=== PATIENT | male | born 1965 | race Caucasian/White ===

== ENCOUNTER → 2017-02-04 | Outpatient (CLI) | payer BC ==
[~2017-02-04] VITALS: Ht 185.4 cm; Wt 136.1 kg
[~2017-02-04] MED LIST: HYDR12CA PO; LIDOCAINE 2% INJ 100 MG/5 ML SDV (FOR ANES.) As Ordered ONE; LISI40TAB PO; NS 1,000 ML IV ONE; PROPOFOL 200 MG/20 ML VIAL As Ordered ONE
--- NOTE | 2017-02-04 09:54 | ROOR ---
Patient Name: Homar Alvarez Procedure Date: 02/04/2017 9:29 AM Date of : 1965 Age: 51 Room: [facility] Gender: Male Note Status: Finalized Procedure: Colonoscopy Indications: Screening for colorectal malignant neoplasm Providers: DO Samuel Portillo MD: CANDICE JACOBSON Requesting Provider: Medicines: Propofol per Anesthesia Complications: No immediate complications. Procedure: Pre-Anesthesia Assessment: - Prior to the procedure, a History and Physical was performed, and patient medications and allergies were reviewed. The patient is competent. The risks and benefits of the procedure and the sedation options and risks were discussed with the patient. All questions were answered and informed consent was obtained. Patient identification and proposed procedure were verified by the physician, the nurse, the anesthesiologist and the medication reconciliation technician in the endoscopy suite. Mental Status Examination: alert and oriented. Airway Examination: normal oropharyngeal airway and neck mobility. Respiratory Examination: clear to auscultation. CV Examination: normal. Prophylactic Antibiotics: The patient does not require prophylactic antibiotics. Prior Anticoagulants: The patient has taken no previous anticoagulant or antiplatelet agents. ASA Grade Assessment: II - A patient with mild systemic disease. After reviewing the risks and benefits, the patient was deemed in satisfactory condition to undergo the procedure. The anesthesia plan was to use monitored anesthesia care (MAC). Immediately prior to administration of medications, the patient was re-assessed for adequacy to receive sedatives. The heart rate, respiratory rate, oxygen saturations, blood pressure, adequacy of pulmonary ventilation, and response to care were monitored throughout the procedure. The physical status of the patient was re-assessed after the procedure. The Colonoscope was introduced through the anus and advanced to the cecum, identified by appendiceal orifice and ileocecal valve. The colonoscopy was performed without difficulty. The patient tolerated the procedure well. Findings: The perianal exam findings include an abnormal skin lesion. The perianal exam findings include non-thrombosed internal hemorrhoids and internal hemorrhoids that prolapse with straining, but spontaneously regress to the resting position (Grade II). A less than 5 mm polyp was found in the rectum. The polyp was hyperplastic. The polyp was removed with a cold biopsy forceps. Resection and retrieval were complete. A few small-mouthed diverticula were found in the sigmoid colon. The exam was otherwise without abnormality on direct and retroflexion views. Impression: - An abnormal skin lesion. found on perianal exam. - Non-thrombosed internal hemorrhoids and internal hemorrhoids that prolapse with straining, but spontaneously regress to the resting position (Grade II) found on perianal exam. - One less than 5 mm polyp in the sigmoid colon, removed with a cold biopsy forceps. Resected and retrieved. - Diverticulosis in the sigmoid colon. - The examination was otherwise normal on direct and retroflexion views. Recommendation: - Patient has a contact number available for emergencies. The signs and symptoms of potential delayed complications were discussed with the patient. Return to normal activities tomorrow. Written discharge instructions were provided to the patient. - Repeat colonoscopy in 3 - 5 years for surveillance based on pathology results. - Return to my office in 1 week. - Await pathology results. Lonny Miramontes DO 02/04/2017 9:54:19 AM This report has been signed electronically. Number of Addenda: 0 Note Initiated On: 02/04/2017 9:29 AM Estimated Blood Loss: Estimated blood loss was minimal.
[2017-02-04 10:20] VITALS: BP 160/104
== END ==
LOC: M OPP 08:23
PROVIDERS: ATTEND Surgery
DX: Z12.11 Encounter for screening for malignant neoplasm of colon (principal); D12.8 Benign neoplasm of rectum; K64.1 Second degree hemorrhoids; K57.30 Diverticulosis of large intestine without perforation or abscess without bleeding; K62.5 Hemorrhage of anus and rectum; I10 Essential (primary) hypertension; Z79.899 Other long term (current) drug therapy

== ENCOUNTER → 2017-03-11 | Day surgery (SDC) | payer BC ==
[~2017-03-11] VITALS: Ht 185.4 cm; Wt 136.1 kg
[~2017-03-11] MED LIST changes: +CHLOROPROCAINE 2 % INJ PRES.FREE 20 ML VIAL (J2400) As Ordered ONE; +LIDOCAINE 1% MDV 20ML VIAL SQ PRN; +LIDOCAINE 2% JELLY 30 ML As Ordered ONE; +LR 1,000 ML IV ONE; +LR 1,000 ML IV SCH; +MIDAZOLAM INJ 2 MG/2 ML VIAL (J2250) As Ordered ONE; +NORCO, ANEXSIA 5/325MG TABLET (HYDROcodone/ACETAMINOPHEN) PO PRN; -NS 1,000 ML IV ONE; +ONDANSETRON 4MG/2ML VIAL (J2405) As Ordered ONE; +ROCURONIUM BROMIDE 50 MG/5 ML VIAL/SYRINGE As Ordered ONE; +ceFAZolin 2 GM/D5W 50 ML IV BAG (J0690) As Ordered ONE; +dexameTHASONE 4 MG/ML 1ML VIAL (J1100) As Ordered ONE; +fentaNYL 100 MCG/2 ML INJECTION (J3010) As Ordered ONE; +fentaNYL 100 MCG/2 ML INJECTION (J3010) IV PRN
[2017-03-11 10:10] VITALS: BP 143/73
--- NOTE | 2017-03-12 09:21 | RO ---
DATE OF PROCEDURE: 03/11/2017 PREOPERATIVE DIAGNOSIS: Perianal lesion. POSTOPERATIVE DIAGNOSIS: Perianal lesion. Perianal fistula. PROCEDURE: Excision of perianal skin lesion plus fistulotomy. SURGEON: Lonny Miramontes DO FARM MANAGEMENT SUPERVISOR: None. ANESTHESIA: Spinal COMPLICATIONS: None. INDICATION FOR PROCEDURE: Patient is a 53-year-old male [facility] During his [facility]oscopy he was found to have a hard lesion on the perianal skin. The patient mentioned that he had this for many years and it was starting to be concerning to him. He also mentioned that he started to have some drainage around this area that was intermittent. Because of that, plan was to remove this lesion as well as to evaluate for possible fistula in the area. Recommendation was to proceed with exam under anesthesia was well as possible fistulotomy versus Seton placement and removal of the skin lesion. Risks and benefits of the procedure not limited to but including bleeding, infection, incontinence and need for further surgery, were discussed in detail with the patient. Informed consent was obtained and procedure was planned. PROCEDURE: The patient brought back to operating room three after sufficient sedation. The perianal area was sterilely prepped and draped with Betadine. Next, a time-out was done to confirm proper patient and proper procedure. Following that a bivalve retractor was placed inside the end of the rectum. This skin lesion measuring about 6 x 8 mm in size was carefully excised using a 15 blade scalpel. Below that there was a skin opening. Mixture of 50% hydrogen peroxide and 50% saline was injected through this opening and there was an opening encounter on the inside of the rectum. Next, a wire was able to be passed from the outside through the inside through the sinus tract. This was then elevated up gently and electrocautery was used to carefully filet open the fistula tract, creating a fistulotomy. Once this was completed, there was no signs of any bleeding. The wound was then left open to allow to heal from the inside out. The patient tolerated the procedure well. Two interrupted #3-0 Vicryl sutures were used to reapproximate some of the muscle fibers to assist in healing, otherwise the rest of it was left open. The patient tolerated procedure well. He was awakened from anesthesia and sent to the postanesthesia care unit (PACU) in stable condition.
== END | disposition home or self-care (01) ==
LOC: M SDC 05:52
PROVIDERS: ATTEND Surgery
DX: K60.3 Anal fistula (principal); K62.89 Other specified diseases of anus and rectum; I10 Essential (primary) hypertension; E66.01 Morbid (severe) obesity due to excess calories; Z79.899 Other long term (current) drug therapy; Z86.19 Personal history of other infectious and parasitic diseases
CPT/HCPCS: 11401; 46270; 88304; J0690; J1100; J2250; J2400; J2405

== ENCOUNTER 2017-08-25 11:14 | Emergency (ER) | payer OTHER, BC ==
[~2017-08-25] VITALS: Ht 185.4 cm; Wt 137.3 kg
[~2017-08-25 11:14] MED LIST changes: -CHLOROPROCAINE 2 % INJ PRES.FREE 20 ML VIAL (J2400) As Ordered ONE; -LIDOCAINE 1% MDV 20ML VIAL SQ PRN; -LIDOCAINE 2% INJ 100 MG/5 ML SDV (FOR ANES.) As Ordered ONE; -LIDOCAINE 2% JELLY 30 ML As Ordered ONE; -LR 1,000 ML IV ONE; -LR 1,000 ML IV SCH; -MIDAZOLAM INJ 2 MG/2 ML VIAL (J2250) As Ordered ONE; -NORCO, ANEXSIA 5/325MG TABLET (HYDROcodone/ACETAMINOPHEN) PO PRN; -ONDANSETRON 4MG/2ML VIAL (J2405) As Ordered ONE; -PROPOFOL 200 MG/20 ML VIAL As Ordered ONE; -ROCURONIUM BROMIDE 50 MG/5 ML VIAL/SYRINGE As Ordered ONE; -ceFAZolin 2 GM/D5W 50 ML IV BAG (J0690) As Ordered ONE; -dexameTHASONE 4 MG/ML 1ML VIAL (J1100) As Ordered ONE; -fentaNYL 100 MCG/2 ML INJECTION (J3010) As Ordered ONE; -fentaNYL 100 MCG/2 ML INJECTION (J3010) IV PRN
[2017-08-25] MEDS ORDERED: TYLE325T5 PO (11:25)
--- NOTE | 2017-08-25 13:02 | REP ---
LEFT KNEE SERIES: Five views of the left knee performed. I see no acute fracture or dislocation. There is mild diffuse joint space narrowing, subchondral sclerosis, spurring, and chondrocalcinosis. Large spurs are seen of the lateral patellar facet and femoral condyle. There appears to be a small joint effusion. IMPRESSION: Degenerative changes and small joint effusion. No evidence of acute fracture or dislocation. Signed by Lonny Hernandez MD 08/25/2017 05:26 P
[2017-08-25 13:28] VITALS: BP 152/88
== END 2017-08-25 13:36 | disposition home or self-care (01) ==
LOC: M ED 11:14
DX: Z04.1 Encounter for examination and observation following transport accident (principal); M25.462 Effusion, left knee; S80.02XA Contusion of left knee, initial encounter; V99.XXXA Unspecified transport accident, initial encounter; Y92.410 Unspecified street and highway as the place of occurrence of the external cause; Y93.89 Activity, other specified; Y99.8 Other external cause status; I10 Essential (primary) hypertension; Z79.899 Other long term (current) drug therapy

== ENCOUNTER → 2018-01-22 | Outpatient (CLI) | payer OTHER | LOC: M LRY 15:49 | DX: M79.672 Pain in left foot (principal) | CPT/HCPCS: 73630 ==

== ENCOUNTER → 2020-01-27 | Outpatient (CLI) | payer OTHER ==
[~2020-01-27] MED LIST changes: +LISI40TA PO; -LISI40TAB PO; +TYLE325T5 PO
--- NOTE | 2020-01-27 17:54 | REP ---
Clinical: Trauma. Technique: Internal rotation, external rotation, and Y view of the right shoulder. Findings: No acute fracture or dislocation is appreciated. Mild age-related degenerative changes include subtle cortical irregularity at the acromioclavicular joint and minimal blunting of the calcified glenoid rim. Subacromial space is normal. No periarticular calcifications or loose bodies are identified. Surrounding soft tissues are unremarkable. Impression: Mild age-related degenerative changes. No acute fracture or dislocation appreciated. Electronically Signed by Travis Jones MD 01/27/2020 05:45 P
== END ==
LOC: M LRY 17:14
PROVIDERS: ATTEND Nurse Practitioner Family
DX: S49.91XA Unspecified injury of right shoulder and upper arm, initial encounter (principal); M19.011 Primary osteoarthritis, right shoulder; X58.XXXA Exposure to other specified factors, initial encounter; Y92.9 Unspecified place or not applicable

== ENCOUNTER 2020-09-21 15:48 | Emergency (ER) | payer OTHER ==
[~2020-09-21] VITALS: Ht 185.4 cm; Wt 137.3 kg
[~2020-09-21 15:48] MED LIST changes: -LISI40TA PO; +LISI40TA4 PO
--- OUTSIDE RECORDS SUMMARY | 2020-09-21 15:54 | CCD | Continuity of Care Document ---
Author Author Homar VAZQUEZ RPA Organization Unknown Address [address] [place] [address] Phone [phone] Problems Active Problems Provider Date Allergic rhinitis Jairo Vazquez RPA Onset: 07/20/2012 Hyperlipidemia Jairo Vazquez RPA Onset: 11/03/2012 Elevated levels of transaminase & lactic acid dehydrog enase Jairo Vazquez RPA Onset: 11/03/2012 Essential hypertension Jairo Vazquez RPA Onset: 015 Ventral hernia without obstruction or gangrene Glen Vazquez RPA Onset: 06/08/2015 Nocturia Jairo Vazquez RPA Onset: 12/23/2016 Vitamin D deficiency Jairo Vazquez RPA Onset: 7 Abnormal involuntary movement Jairo Vazquez RPA Onset: 08/27/2020 Social History Type Date Description Comments Sex Unknown ETOH Use former.[email or web address].[email or web address] Recreational Drug Use Never Used Drugs Tobacco Use Start: Unknown Patient has never smoked Allergies, Adverse Reactions, Alerts Description No Known Drug Allergies Medications Active Medications SIG Qnty Indications Ordering Provide r Date Triamcinolone Acetonide 0.1% Ointm ent apply locally to rash on hands twice a day x 10 days as needed 45gm Anoop Torrez D.O., FAAFP 08/30/2019 Lisinopril 40mg Tablets i by mouth every day 90tabs Anoop Torrez D.O., FAAFP 11/2011 Hydrochlorothiazide 12.5mg Tablets 1 by mouth every day 90tabs Anoop Torrez D.O., FAAFP 11/2011 Medications Administered in Office Medication SIG Qnty Indications Ordering Provider Date Injection (SC)/(Im) Injection Jairo Vazquez RPA 07/28/2013 Injection (SC)/(Im) Injection Jairo Vazquez RPA 07/20/2012 Injection Subcutaneous Or Intramuscular Injection Sidra Stephens [facility] 07/08 Immunizations CPT Code Status Date Vaccine Reaction Lot # 10502 Given 06/22/2020 Influenza Virus Vaccine, Quadrivalent, Slit Virus, Im Use 3Y & Up [id number] 01244 Given 08/03/2018 Influenza Virus Vaccine, Quadrivalent, Slit Virus, Im Use 3Y & Up [id number] 04932 Given 07/17/2017 Influenza Virus Vaccine, Quadrivalent, Slit Virus, Im Use 3Y & Up [id number] 29066 Given 06/26/2016 Influenza Virus Vaccine, Quadrivalent, Slit Virus, Im Use 3Y & Up [id number] 17568 Given 06/08/2015 Influenza Virus Vac. Split Virus Individuals 3 Years And Above [id number] 23696 Given 08/15/2014 Influenza Virus Vac. Split Virus Individuals 3 Years And Above [id number] 20415 Given 07/28/2013 Influenza Virus Vac. Split Virus Individuals 3 Years And Above [id number] 15646 Given 07/20/2012 Influenza Virus Vac. Split Virus Individuals 3 Years And Above [id number] 17884 Given 07/21/2008 Influenza Virus Vac. Split Virus Individuals 3 Years And Above [id number] Refused 08/30/2019 Influenza Virus Vaccine, Quadrivalent, Slit Virus, Im Use 3Y & Up RECEIVED AT [facility] 07/2019 Vital Signs Date Vital Result Comment 08/27/2020 1:32pm BP Systolic 124 mmHg BP Diastolic 90 mmHg Body Temperature 98.2 F Heart Rate 100 /min Respiratory Rate 16 /min Height 73 inches 6'1" Weight 298.00 lb [place] Body Weight 184 lb BMI (Body Mass Index) 39.3 kg/m2 O2 % BldC Oximetry 97 % 06/22/2020 8:35am BP Systolic 146 mmHg BP Diastolic 90 mmHg BP Systolic Recheck 130 mmHg BP Diastolic Recheck 88 mmHg Body Temperature 97.3 F Heart Rate 81 /min Respiratory Rate 16 /min Height 73 inches 6'1" Weight 299.00 lb [place] Body Weight 184 lb BMI (Body Mass Index) 39.4 kg/m2 O2 % BldC Oximetry 96 % Results Test Acquired Date Facility Test Result H/L Range Note U/A DIP FPA 03/13/2020 [facility] Asso ciates Color Urine YELLOW Yellow Appearance CLEAR Clear Specific [place] 1.025 1.00-1.03 PH Urine 5.0 5.0-8.0 Glucose Urine NEG Negative Bilirubin Urine NEG Negative Ketones NEG Negative Blood Urine NEG Negative Protein Urine NEG Negative Urobilinogen .2 EU/dl 0.2-1.0 Nitrite NEG Negative Leukocytes NEG Negative Laboratory test finding 03/13/2020 [facility] PSA, Total 1.47 ng/mL 0.0 - 4.0 Laboratory test finding 03/13/2020 [facility] TSH 0.994 ulU/mL 0.60 - 4.8 CBC 03/13/2020 [facility] WBC 4.6 10E3/uL 4.1 - 10.9 1 RBC 5.78 10E6/uL 4.20 - 6.30 HGB 17.0 g/dL 12.0 - 18.0 HCT 49.8 % 37.0 - 51.0 MCV 86.2 fL 80.0 - 97.0 MCH 29.4 pg 26.0 - 32.0 MCHC 34.1 g/dL 31.0 - 36.0 PLT 173 10E3/uL 140 - 440 RDW-CV 13.4 % 11.5 - 14.5 Lym% 23.5 % 10.0 - 58.5 Neut% 65.5 % 37.0 - 92.0 MXD% 11.0 % 0.1 - 24.0 Lym# 1.1 10E3/uL 0.6 - 4.1 Neut# 3.0 % 2.0 - 7.8 MXD# 0.5 10E3/uL 0.0 - 1.8 MPV 11.1 fL 9.0 - 13.0 CMP 03/13/2020 [facility] Glu 103 mg/dL 70 - 110 BUN 14 mg/dL 8 - 23 Creat 0.8 mg/dL 0.7 - 1.2 BUN/Creatinine Ratio 18.3 CALC Na 140 mmol/L 136 - 145 K 4.1 mmol/L 3.5 - 5.1 CL 105.4 mmol/L 98.0 - 107.0 Co2 24.0 mmol/L 22.0 - 29.0 CA 9.4 mg/dL 8.6 - 10.2 TP 6.6 g/dL 6.6 - 8.7 Alb 4.4 g/dL 3.5 - 5.2 A/G Ratio 1.9 CALC Globulin 2.3 CALC Alp 102.0 U/L 40 - 129 Alt (SGPT) 37 U/L 0 - 41 Ast (Sgot) 25 U/L 0 - 40 Tbili 0.53 mg/dL 0.0 - 1.2 Osmolality-Calculated 281.0 CALC Anion Gap 15 mmol/L eGFR 117 # Calc 2 eGFR Non-Afr. [place] 101 # Calc 3 Lipid Panel 03/13/2020 [facility] Chol 188 mg/dL 0 - 200 Trig 76 mg/dL 35 - 200 HDL 52 mg/dL 35 - 55 LDL_C 121 Calc 75 - 129 Cho/HDL Ratio 3.6 Calc 1 NORMAL RANGES Age WBC RBC HGB HCT MCV PLT Adult M 4.1-10.9 4.20-6.30 12.0-18.0 37.0-51.0 80-97 140-440 Adult F 4.1-10.9 4.04-5.48 12.0-18.0 37.0-51.0 80-97 140-440 0 -1 Yr 5.0-20.0 3.9-5.9 15-18 MV: 44 MV: 91 MV: 277 2-9 Yr. 6.0-17.0 3.8-5.4 11-13 MV: 37 MV: 78 MV: 300 10 Yrs. 5.0-13.0 3.8-5.4 12-15 MV: 39 MV: 80 MV: 250 NOTE: * FOR ADULT BLACK MALES AND FEMALES, NORMAL WBC IS 2.9-7.7 K/ML * FOR ADULT BLACK MALES AND FEMALES, NORMAL RBC,HGB, AND HCT IS 5% LESS SOURCE FOR DATA: ROLANDA DYN 1800 OPERATION MANUAL( AUTOMATED BLOOD COUNTS ANDDIFF.) APPENDIX B-3 CHRONIC KIDNEY DISEASE STAGING PER NKF: MALE GFR INTERPRETATION: 20-49 YRS: >60 mL/min Normal 50-59 YRS: >56 mL/min Normal 60-69 YRS: >49 mL/min Normal 70-79 YRS: >42 mL/min Normal 80 and above >35 mL/min Normal FEMALE GRF INTERPRETATION: 20-39 YRS: >60 mL/min Normal 40-49 YRS: >58 mL/min Normal 50-59 YRS: >51 mL/min Normal 60-69 YRS: >45 mL/min Normal 70-79 YRS: >39 mL/min Normal 80 and above >32 mL/min NormalCLASSIFICATION CHOLESTEROL FOR ADULTS CHILDREN/ADOLESCENTS* DESIRABLE: <200 MG/DL <170 MG/DL BORDER-LINE HIGH RISK: 200-239 MG/DL 170-199 MG/DL HIGH RISK: >240 MG/DL >200 MG/DL CLASS. FOR PRIMARY LDL CHOL PREVENTION: LDL CHOL-CHILD/ADOLESCENTS* DESIRABLE: <130 MG/DL <110 MG/DL BORDERLINE-HIGH RISK: 130-159 MG/DL 110-129 MG/DL HIGH RISK: >160 MG/DL >130 MG/DL *CHILDREN AND ADOLESCENTS REPRESENTS INDIVIDUALA AGED 2-19 YEARS EXCLUSIVE. 2 CKD-EPI 3 CKD-EPI Procedures Description No Information Available Medical Devices Description No Information Available Encounters Type Date Location Provider Dx Diagnosis Office Visit 08/27/2020 1:30p [facility] Jairo Vazquez, RP A Z00.01 Encounter for general adult medical exam w abnormal findings I10 Essential (primary) hyperten wanda E78.5 Hyperlipidemia, unspecified J30.2 Other seasonal allergic rhin itis R35.1 Nocturia R25.1 Tremor, unspecified K43.9 Ventral hernia without obstr uction or gangrene Office Visit 06/22/2020 8:30a [facility] Jairo Vazquez, RP A I10 Essential (primary) hypertension E78.5 Hyperlipidemia, unspecified J30.2 Other seasonal allergic rhin itis R35.1 Nocturia Z23 Encounter for immunization Office Visit 03/13/2020 8:30a [facility] Jairo Vazquez, RP A I10 Essential (primary) hypertension E78.5 Hyperlipidemia, unspecified J30.2 Other seasonal allergic rhin itis R35.1 Nocturia R74.0 Nonspec elev of levels of tr ansamns & lactic acid dehydrgnse Assessments Date Code Description Provider 08/27/2020 Z00.01 Encounter for genera l adult medical examination with abnormal findings Jairo Vazquez, RPA 08/27/2020 I10 Essential (primary) hypertension Jairo Vazquez, RPA 08/27/2020 E78.5 Hyperlipidemia, unspecified Jairo Biswas, RPA 08/27/2020 J30.2 Other seasonal allergic rhinitis Jairo Vazquez, RPA 08/27/2020 R35.1 Nocturia Jairo Vazquez, RPA 08/27/2020 R25.1 Tremor, unspecified Asaf Vazquez, RPA 08/27/2020 K43.9 Ventral hernia without obstructi on or gangrene Jairo Vazquez, RPA 06/22/2020 I10 Essential (primary) hypertension Jairo Vazquez, RPA 06/22/2020 E78.5 Hyperlipidemia, unspecified Jairo Biswas, RPA 06/22/2020 J30.2 Other seasonal allergic rhinitis Jairo Vazquez, RPA 06/22/2020 R35.1 Nocturia Jairo Vazquez, RPA 06/22/2020 Z23 Encounter for immunization Jairo Brar, RPA 03/13/2020 I10 Essential (primary) hypertension Jairo Vazquez, RPA 03/13/2020 E78.5 Hyperlipidemia, unspecified Jairo Biswas, RPA 03/13/2020 J30.2 Other seasonal allergic rhinitis Jairo Vazquez, RPA 03/13/2020 R35.1 Nocturia Jairo Vazquez, RPA 03/13/2020 R74.0 Nonspecific elevation of levels of transaminase and lactic a Jairo Vazquez, RPA Plan of Treatment Future Appointment(s):* 09/25/2020 8:30 am - Jairo Vazquez, RPA at [facility] Functional Status Description No Information Available Mental Status Description No Information Available Referrals Refer to Reason for Referral Status Appt Date Tremor both hands. Created
--- OUTSIDE RECORDS SUMMARY | 2020-09-21 15:54 | CCD | Continuity of Care Document ---
Author Author Homar VZAQUEZ RPA Organization Unknown Address [address] [place] [address] Phone [phone] Problems Active Problems Provider Date Allergic rhinitis [...] Injection Subcutaneous Or Intramuscular Injection Sidra Stephens [facility] 07/08 Immunizations CPT Code Status Date Vaccine Reaction Lot # [id number] Given 06/22/2020 Influenza Virus Vaccine, Quadrivalent, Slit Virus, Im Use 3Y & Up [id number] 96433 Given 08/03/2018 Influenza Virus Vaccine, Quadrivalent, Slit Virus, Im Use 3Y & Up [id number] 48254 Given 07/17/2017 Influenza Virus Vaccine, Quadrivalent, Slit Virus, Im Use 3Y & Up [id number] 07147 Given 06/26/2016 Influenza Virus Vaccine, Quadrivalent, Slit Virus, Im Use 3Y & Up [id number] 78736 Given 06/08/2015 Influenza Virus Vac. Split Virus Individuals 3 Years And Above [id number] 09286 Given 08/15/2014 Influenza Virus Vac. Split Virus Individuals 3 Years And Above [id number] 36541 Given 07/28/2013 Influenza Virus Vac. Split Virus Individuals 3 Years And Above [id number] 16809 Given 07/20/2012 Influenza Virus Vac. Split Virus Individuals 3 Years And Above [id number] 60532 Given 07/21/2008 Influenza Virus Vac. Split Virus Individuals 3 Years And Above [id number] 96329 Refused 08/30/2019 Influenza Virus Vaccine, Quadrivalent, Slit Virus, Im Use 3Y & Up RECEIVED AT [facility] 07/2019 Vital Signs Date Vital Result Comment 08/27/2020 1:32pm BP Systolic 124 mmHg BP Diastolic 90 mmHg Body Temperature 98.2 F Heart Rate 100 /min Respiratory Rate 16 /min Height 73 inches 6'1" Weight 298.00 lb [place] Body Weight 184 lb BMI (Body Mass Index) 39.3 kg/m2 O2 % BldC Oximetry 97 % 06/22/2020 8:35am BP Systolic 146 mmHg BP Diastolic 90 mmHg BP Systolic Recheck 130 mmHg BP Diastolic Recheck 88 mmHg Body Temperature 97.3 F Heart Rate 81 /min Respiratory Rate 16 /min Height 73 inches 6'1" Weight 299.00 lb [place] Body Weight 184 lb BMI (Body Mass Index) 39.4 kg/m2 O2 % BldC Oximetry 96 % Results Test Acquired Date Facility Test Result H/L Range Note U/A DIP FPA 03/13/2020 [facility] Practice Asso ciates Color Urine YELLOW Yellow Appearance CLEAR Clear Specific [place] 1.025 1.00-1.03 PH Urine 5.0 5.0-8.0 Glucose [...] eGFR 117 # Calc 2 eGFR Non-Afr. [place] 101 # Calc 3 Lipid Panel 03/13/2020 [...] Provider Dx Diagnosis Office Visit 08/27/2020 1:30p [place] [facility] Jairo Vazquez, RP A Z00.01 Encounter for general adult medical exam w abnormal findings I10 Essential (primary) hyperten wanda E78.5 Hyperlipidemia, unspecified J30.2 Other seasonal allergic rhin itis R35.1 Nocturia R25.1 Tremor, unspecified K43.9 Ventral hernia without obstr uction or gangrene Office Visit 06/22/2020 8:30a [facility] Jairo Vazquez, RP A I10 Essential (primary) hypertension E78.5 Hyperlipidemia, unspecified J30.2 Other seasonal allergic rhin itis R35.1 Nocturia Z23 Encounter for immunization Office Visit 03/13/2020 8:30a [place] [facility] Jairo Vazquez, RP A I10 Essential [...] Vazquez, RPA Plan of Treatment Future Appointment(s):* 11/29/2020 8:30 am - Jairo Vazquez, SHENG at [facility] Functional Status Description No Information Available Mental Status Description No Information Available Referrals Refer to Reason for Referral Status Appt Date Mel Gibbs Tremor both hands. Sent 0 000 [facility] [address] [place] [address] [phone]
--- OUTSIDE RECORDS SUMMARY | 2020-09-21 15:54 | CCD | Continuity of Care Document ---
Author Author Homar SAAVEDRA M.D. Organization Unknown Address [address] [place] [address] Phone [phone] Care Team Providers Care Substation Design Draftsperson Name Role Phone Jairo Vazquez AUTM [phone] Anoop Torrez D.O. AUTM [phone] Problems Active Problems Provider Date Abnormal involuntary movement Onset: Nocturia Onset: 12/23/2016 Vitamin D deficiency Onset: 12/23/2016 Essential hypertension Onset: 06/08/2015 Hyperlipidemia Onset: 11/03/2012 Elevated levels of transaminase & lactic acid dehydrogenase Onset: 11/03/2012 Allergic rhinitis Onset: 07/20/2012 Intention tremor Kerry Saavedra M.D. Onset: 08/29/2020 Social History Type Date Description Comments Sex Unknown Tobacco Use Start: Unknown Patient has never smoked Allergies, Adverse Reactions, Alerts Description No Known Drug Allergies Medications Active Medications SIG Qnty Indications Ordering Provide r Date Triamcinolone Acetonide 0.1% Ointm ent apply locally to rash on hands twice a day x 10 days as needed 45units Anoop Torrez D.O. 08/30/2019 Lisinopril 40mg Tablets i by mouth every day 90tabs Anoop Torrez D.O. 01/08/2012 Hydrochlorothiazide 12.5mg Tablets 1 by mouth every day 90tabs Anoop Torrez D.O. 01/08/2012 Immunizations Description No Information Available Vital Signs Date Vital Result Comment 08/29/2020 2:45pm Respiratory Rate 12 /min Height 73 inches 6'1" Weight 298.00 lb BMI (Body Mass Index) 39.3 kg/m2 [place] Body Weight 184 lb 08/27/2020 1:32pm BP Systolic 124 mmHg BP Diastolic 90 mmHg Heart Rate 100 /min Body Temperature 98.2 F Respiratory Rate 16 /min Height 73 inches 6'1" Weight 298.00 lb BMI (Body Mass Index) 39.3 kg/m2 O2 % BldC Oximetry 97 % Results Description No Information Available Procedures Description No Information Available Medical Devices Description No Information Available Encounters Description No Information Available Assessments Description No Information Available Plan of Treatment No Information Available Functional Status Description No Information Available Mental Status Description No Information Available Referrals Description No Information Available
--- OUTSIDE RECORDS SUMMARY | 2020-09-21 15:54 | CCD | Continuity of Care Document ---
Author Author Homar VAZQUEZ RPA Organization Unknown Address [address] [facility] [place] [address] Phone [phone] Problems Active Problems Provider Date Allergic rhinitis [...] D deficiency Jairo Vazquez RPA Onset: 7 Social History Type Date Description Comments Sex [...] Tablets 1 by mouth every day 90tabs Sim Diaz.O., FAAFP 11/2011 Medications Administered in Office Medication SIG Qnty Indications Ordering Provider Date Injection (SC)/(Im) Injection Jairo Vazquez RPA 07/28/2013 Injection (SC)/(Im) Injection Jairo Vazquez RPA 07/20/2012 Injection Subcutaneous Or Intramuscular Injection Sidra Stephens [facility]- 07/08 Immunizations CPT Code Status Date Vaccine Reaction Lot # [id number] Given 06/22/2020 Influenza Virus Vaccine, Quadrivalent, Slit Virus, Im Use 3Y & Up [id number] 99827 Given 08/03/2018 Influenza Virus Vaccine, Quadrivalent, Slit Virus, Im Use 3Y & Up [id number] 29264 Given 07/17/2017 Influenza Virus Vaccine, Quadrivalent, Slit Virus, Im Use 3Y & Up [id number] 54173 Given 06/26/2016 Influenza Virus Vaccine, Quadrivalent, Slit Virus, Im Use 3Y & Up [id number] 15952 Given 06/08/2015 Influenza Virus Vac. Split Virus Individuals 3 Years And Above [id number] [id number] Given 08/15/2014 Influenza Virus Vac. Split Virus Individuals 3 Years And Above [id number] 30630 Given 07/28/2013 Influenza Virus Vac. Split Virus Individuals 3 Years And Above [id number] 81208 Given 07/20/2012 Influenza Virus Vac. Split Virus Individuals 3 Years And Above [id number] [id number] Given 07/21/2008 Influenza Virus Vac. Split Virus Individuals 3 Years And Above [id number] Refused 08/30/2019 Influenza Virus Vaccine, Quadrivalent, Slit Virus, Im Use 3Y & Up RECEIVED AT [facility] 07/2019 Vital Signs Date Vital Result Comment 06/22/2020 8:35am BP Systolic 146 mmHg BP Diastolic 90 mmHg BP Systolic Recheck 130 mmHg BP Diastolic Recheck 88 mmHg Body Temperature 97.3 F Heart Rate 81 /min Respiratory Rate 16 /min Height 73 inches 6'1" Weight 299.00 lb [place] Body Weight 184 lb BMI (Body Mass Index) 39.4 kg/m2 O2 % BldC Oximetry 96 % 03/13/2020 8:30am BP Systolic 122 mmHg BP Diastolic 84 mmHg Body Temperature 99.2 F Heart Rate 72 /min Respiratory Rate 16 /min Height 73 inches 6'1" Weight 292.00 lb [place] Body Weight 184 lb BMI (Body Mass Index) 38.5 kg/m2 O2 % BldC Oximetry 97 % Results Test Acquired Date Facility Test Result H/L Range Note U/A DIP FPA 03/13/2020 [facility] Color Urine YELLOW Yellow Appearance CLEAR Clear Specific [facility] 1.025 1.00-1.03 PH Urine 5.0 5.0-8.0 Glucose [...] eGFR 117 # Calc 2 eGFR Non-Afr. Bulgarian 101 # Calc 3 Lipid Panel 03/13/2020 [...] HCT IS 5% LESS SOURCE FOR DATA: [employer] DYN 1800 OPERATION MANUAL( AUTOMATED BLOOD COUNTS [...] Date Location Provider Dx Diagnosis Office Visit 06/22/2020 8:30a [place] [facility] Jairo Vazquez, RP A I10 Essential (primary) hypertension E78.5 Hyperlipidemia, unspecified J30.2 Other seasonal allergic rhin itis R35.1 Nocturia Z23 Encounter for immunization Office Visit 03/13/2020 8:30a [place] [facility] Jairo Vazquez, RP A I10 Essential (primary) hypertension E78.5 Hyperlipidemia, unspecified J30.2 Other seasonal allergic rhin itis R35.1 Nocturia R74.0 Nonspec elev of levels of tr ansamns & lactic acid dehydrgnse Assessments Date Code Description Provider 06/22/2020 I10 Essential (primary) hypertension Jairo Vazquez, RPA 06/22/2020 E78.5 Hyperlipidemia, unspecified Hinm an, Jairo D, RPA 06/22/2020 J30.2 Other seasonal allergic rhinitis [...] Future Appointment(s):* 09/25/2020 8:30 am - Jairo Vazquez RPA at [facility] * 08/27/2020 1:30 pm - Jairo Vazquez RPA at [facility] Functional Status Description No Information Available Mental Status Description No Information Available Referrals Description No Information Available
--- OUTSIDE RECORDS SUMMARY | 2020-09-21 15:55 | CCD ---
Author Author [facility] Organization [facility] Address Unknown Phone Unavailable Care Team Providers Care Election Supervisor Name Role Phone [facility], PA-C Unavailable Unavailabl e Fish, [facility], PA-C Unavailable Unavailabl e Fish, [facility], PA-C Unavailable Unavailabl e Fish, [facility], PA-C Unavailable Unavailabl e Fish, [facility], PA-C Unavailable Unavailabl e Fish, [facility], PA-C Unavailable Unavailabl e Fish, [facility], PA-C Unavailable Unavailabl e Fish, [facility], PA-C Unavailable Unavailabl e Fish, [facility], PA-C Unavailable Unavailabl e Fish, [facility], PA-C Unavailable Unavailabl e Fish, [facility], PA-C Unavailable Unavailabl e Fish, [facility], PA-C Unavailable Unavailabl e Fish, [facility], PA-C Unavailable Unavailabl e Fish, [facility], PA-C Unavailable Unavailabl e Fish, [facility], PA-C Unavailable Unavailabl e Fish, [facility], PA-C Unavailable Unavailabl e Fish, [facility], PA-C Unavailable Unavailabl e Fish, [facility], PA-C Unavailable Unavailabl e Fish, Alissa Kendy MPAS, PA-C Unavailable Unavailabl e Fish, Alissa Larry MPAS, PA-C Unavailable Unavailabl e Fish, Alissa Larry MPAS, PA-C Unavailable Unavailabl e Fish, Alissa Larry MPAS, PA-C Unavailable Unavailabl e Fish, Alissa Larry MPAS, PA-C Unavailable Unavailabl e Fish, Alissa Larry MPAS, PA-C Unavailable Unavailabl e Fish, Alissa Larry MPAS, PA-C Unavailable Unavailabl e Fish, Alissa Rogersen MPAS, PA-C Unavailable Unavailabl e Fish, Alissa Rogersen MPAS, PA-C Unavailable Unavailabl e Fish, Alissa Larry MPAS, PA-C Unavailable Unavailabl e Fish, Alissa Larry MPAS, PA-C Unavailable Unavailabl e Fish, Alissa Larry MPAS, PA-C Unavailable Unavailabl e Fish, Alissa Larry MPAS, PA-C Unavailable Unavailabl e Fish, Alissa Larry MPAS, PA-C Unavailable Unavailabl e Fish, Alissa Larry MPAS, PA-C Unavailable Unavailabl e GeorgeSim rolle PA Unavailable Unavailable Sim Vazquez PA Unavailable Unavailable Sim Vazquez PA Unavailable Unavailable Sim Vazquez PA Unavailable Unavailable Sim Vazquez PA Unavailable Unavailable Sim Vazquez PA Unavailable Unavailable Sim Vazquez PA Unavailable Unavailable Sim Vazquez PA Unavailable Unavailable Sim Vazquez PA Unavailable Unavailable Sim Vazquez PA Unavailable Unavailable Sim Vazquez PA Unavailable Unavailable Sim Vazquez PA Unavailable Unavailable Sim Vazquez PA Unavailable Unavailable Sim Vazquez PA Unavailable Unavailable Sim Vazquez PA Unavailable Unavailable Sim Vazquez PA Unavailable Unavailable Sim Vazquez PA Unavailable Unavailable Sim Vazquez Jairo PA Unavailable Unavailable Sim Vazquez PA Unavailable Unavailable Sim Vazquez PA Unavailable Unavailable Sim Vazquez PA Unavailable Unavailable Sim Vazquez PA Unavailable Unavailable Sim Vazquez PA Unavailable Unavailable Sim Vazquez PA Unavailable Unavailable Sim Vazquez PA Unavailable Unavailable Sim Vazquez PA Unavailable Unavailable Sim Vazquez PA Unavailable Unavailable Sim Vazquez PA Unavailable Unavailable Sim Vazquze PA Unavailable Unavailable George, D Jairo PA Unavailable Unavailable George, D Jairo PA Unavailable Unavailable George, D Jairo PA Unavailable Unavailable George, D Jairo PA Unavailable Unavailable George, D Jairo PA Unavailable Unavailable George, D Jairo PA Unavailable Unavailable George, D Jairo PA Unavailable Unavailable George, D Jairo PA Unavailable Unavailable George, D Jairo PA Unavailable Unavailable George, D Jairo PA Unavailable Unavailable George, D Jairo PA Unavailable Unavailable George, D Jairo PA Unavailable Unavailable George, D Jairo PA Unavailable Unavailable George, D Jairo PA Unavailable Unavailable George, D Jairo PA Unavailable Unavailable George, D Jairo PA Unavailable Unavailable George, D Jairo PA Unavailable Unavailable George, D Jairo PA Unavailable Unavailable George, D Jairo PA Unavailable Unavailable George, D Jairo PA Unavailable Unavailable George, D Jairo PA Unavailable Unavailable George, D Jairo PA Unavailable Unavailable George, D Jairo PA Unavailable Unavailable George, D Jairo PA Unavailable Unavailable George, D Jairo PA Unavailable Unavailable George, D Jairo PA Unavailable Unavailable George, D Jairo PA Unavailable Unavailable George, D Jairo PA Unavailable Unavailable George, D Jairo PA Unavailable Unavailable George, D Jairo PA Unavailable Unavailable George, D Jairo PA Unavailable Unavailable George, D Jairo PA Unavailable Unavailable George, D Jairo PA Unavailable Unavailable George, D Jairo PA Unavailable Unavailable Re-disclosure Warning The records that you are about to access may contain information from federally-assisted alcohol or drug abuse programs. If such information is present, then the following federally mandated warning applies: This information has been disclosed to you from records protected by federal confidentiality rules (42 CFR part 2). The federal rules prohibit you from making any further disclosure of this information unless further disclosure is expressly permitted by the written consent of the person to whom it pertains or as otherwise permitted by 42 CFR part 2. A general authorization for the release of medical or other information is NOT sufficient for this purpose. The Federal rules restrict any use of the information to criminally investigate or prosecute any alcohol or drug abuse patient.The records that you are about to access may contain highly sensitive health information, the redisclosure of which is protected by Article 27-F of the [place] State Public Health law. If you continue you may have access to information: Regarding HIV / AIDS; Provided by facilities licensed or operated by the [facility] Office of Mental Health; or Provided by the [facility] Office for People With Developmental Disabilities. If such information is present, then the following [facility] mandated warning applies: This information has been disclosed to you from confidential records which are protected by state law. State law prohibits you from making any further disclosure of this information without the specific written consent of the person to whom it pertains, or as otherwise permitted by law. Any unauthorized further disclosure in violation of state law may result in a fine or halfway sentence or both. A general authorization for the release of medical or other information is NOT sufficient authorization for further disc losure. Family History Family Member Name Family Member Gender Family Member Status Date o f Status Description Data Source(s) Unknown Male Problem [facility] ([facility]) () Unknown Unknown Encounters Encounter Providers Location Date Indications Data Source(s ) Outpatient Attender: Jairo HARVEY [place] [facility] 12:30:00 PM EST [facility] ([facility] Outpatient Attender: Jairo HARVEY [place] [facility] 08:30:00 AM EDT [facility] ([facility] Outpatient Attender: Kendy ALBERT PA-C Physical Therapy 06/08/2020 05:00:00 PM EDT [facility] ([facility] Outpatient Attender: Kendy ALBERT PA-C Physical Therapy 04/27/2020 08:30:00 AM EDT [facility] ([facility]) Outpatient Attender: Jairo HARVEY [place] [facility] 03/2020 08:30:00 AM EDT [facility] ([facility] OFFICE OUTPATIENT NEW 30 MINUTES Attender: Kendy ALBERT PA-C Physical Therapy 03/02/2020 11:00:00 AM EDT [facility] ([facility]) [address] [address] 01/27/2020 12:00:00 AM EDT eCW1 ([facility]) Outpatient Attender: Jairo HARVEY [place] [facility] 03:30:00 PM EDT [facility] ([facility] Outpatient Attender: Jairo HARVEY [place] [facility] 07:30:00 AM EST [facility] ([facility] Immunizations Vaccine Date Status Description Data Source(s) New in 2012. IIV4 06/22/2020 08:36:00 AM EDT completed [facility] ( [facility] New in 2012. IIV4 08/30/2019 07:59:00 AM EST completed [facility] ([facility] Medications Medication Brand Name Start Date Product Form Dose Route Admi nistrative Instructions Pharmacy Instructions Status Indications Reaction Description Data Source(s) Triamcinolone Acetonide 0.001 MG/MG Topical Ointment Triamci nolone Acetonide 08/30/2019 12:00:00 AM EST active [facility] ([facility] Triamcinolone Acetonide 0.001 MG/MG Topical Ointment Triamci nolone Acetonide 08/30/2019 12:00:00 AM EST active [facility] ([facility]) Insurance Providers Payer name Policy type / Coverage type Policy ID Covered libertarian ID Covered libertarian's relationship to domingo Policy Domingo Plan Information KIMBERLY BHAKTA WORKER COMP [id number] SP [id number] ONE CALL CARE MANAGEMENT O [id number] S [id number] [place] PPO 302/307 [id number] SP [id number] ANSI-Commercial [id number] ANSI-Not a Secondary Insurance [id number] ANSI-Commercial [id number] ANSI-Commercial [id number] ANSI-Commercial [id number] ANSI-Not a Secondary Insurance [id number] ANSI-Not a Secondary Insurance [id number] ANSI-Commercial [id number] ANSI-Commercial [id number] ANSI-Commercial [id number] ANSI-Not a Secondary Insurance [id number] ANSI-Commercial [id number] ANSI-Commercial [id number] ANSI-Commercial [id number] ANSI-Not a Secondary Insurance [id number] ANSI-Not a Secondary Insurance [id number] ANSI-Commercial [id number] ANSI-Commercial [id number] ANSI-Not a Secondary Insurance [id number] ANSI-Commercial [id number] ANSI-Commercial [id number] ANSI-Not a Secondary Insurance [id number] ANSI-Commercial [id number] ANSI-Commercial [id number] ANSI-Not a Secondary Insurance [id number] ANSI-Commercial [id number] ANSI-Commercial [id number] KIMBERLY BHAKTA WC O [id number] S [id number] HRARIS YONY WORKER COMP [id number] SP [id number] [place] PPO 302/307 [id number] SP [id number] [facility] [id number] SP [id number] [employer] 190/690 [id number] SP [id number] SELF PAY ONLY SP BCBS [place] PPO 302/307 [id number] SP [id number] [facility] Health Maintenance Organization (HMO) [id number] Self [id number] [facility] Health Maintenance Organization (HMO) [id number] Self [id number] [facility] Health Maintenance Organization (HMO) [id number] Self [id number] [place]UE [place] BLUE SHIELD-O/P [id number] BC/[place] Of [place] Commercial Self [id number] Problems, Conditions, and Diagnoses Code Display Name Description Problem Type Effective Dates Data Source(s) 13935862 Intention tremor Intention tremor Problem 08/29/2020 12 :00:00 AM EST [facility] ([facility] ) [id number] Abnormal involuntary movement Abnormal involuntary mov ement Problem 08/27/2020 12:00:00 AM EST [facility] ([facility]) [id number] Abnormal involuntary movement Abnormal involuntary mov ement Problem 08/27/2020 12:00:00 AM EST [facility] ([facility] Surgeries/Procedures Procedure Description Date Indications Data Source(s) APPLICATION MODALITY 1/> AREAS HOT/COLD PACKS 06/14/20 12:00:00 AM EDT [facility] ([facility] APPL MODALITY 1/> AREAS ELEC STIMJ EA 15 MIN 0 12:00:00 AM EDT [facility] ([facility] THERAPEUTIC PX 1/> AREAS EACH 15 MIN EXERCISES 12:00:00 AM EDT [facility] ([facility] THERAPEUTIC PX 1/> AREAS EACH 15 MIN EXERCISES 12:00:00 AM EDT [facility] ([facility] APPLICATION MODALITY 1/> AREAS HOT/COLD PACKS 06/12/20 12:00:00 AM EDT [facility] ([facility] APPL MODALITY 1/> AREAS ELEC STIMJ EA 15 MIN 0 12:00:00 AM EDT [facility] ([facility] ) THERAPEUTIC PX 1/> AREAS EACH 15 MIN EXERCISES 12:00:00 AM EDT [facility] ([facility] ) THERAPEUTIC PX 1/> AREAS EACH 15 MIN EXERCISES 12:00:00 AM EDT [facility] ([facility] ) APPLICATION MODALITY 1/> AREAS HOT/COLD PACKS 06/07/20 12:00:00 AM EDT [facility] ([facility] APPL MODALITY 1/> AREAS ELEC STIMJ EA 15 MIN 0 12:00:00 AM EDT [facility] ([facility] THERAPEUTIC PX 1/> AREAS EACH 15 MIN EXERCISES 12:00:00 AM EDT [facility] ([facility] ) THERAPEUTIC PX 1/> AREAS EACH 15 MIN EXERCISES 12:00:00 AM EDT [facility] ([facility] THERAPEUTIC PX 1/> AREAS EACH 15 MIN EXERCISES 12:00:00 AM EDT [facility] ([facility] THERAPEUTIC PX 1/> AREAS EACH 15 MIN EXERCISES 12:00:00 AM EDT [facility] ([facility] APPL MODALITY 1/> AREAS ELEC STIMJ EA 15 MIN 0 12:00:00 AM EDT [facility] ([facility] APPLICATION MODALITY 1/> AREAS HOT/COLD PACKS 05/31/20 20 12:00:00 AM EDT [facility] ([facility] ) APPLICATION MODALITY 1/> AREAS HOT/COLD PACKS 05/29/20 20 12:00:00 AM EDT [facility] ([facility] APPL MODALITY 1/> AREAS ELEC STIMJ EA 15 MIN 0 12:00:00 AM EDT [facility] ([facility] ) THERAPEUTIC PX 1/> AREAS EACH 15 MIN EXERCISES 12:00:00 AM EDT [facility] ([facility] ) THERAPEUTIC PX 1/> AREAS EACH 15 MIN EXERCISES 12:00:00 AM EDT [facility] ([facility] ) THERAPEUTIC PX 1/> AREAS EACH 15 MIN EXERCISES 12:00:00 AM EDT [facility] ([facility] ) THERAPEUTIC PX 1/> AREAS EACH 15 MIN EXERCISES 12:00:00 AM EDT [facility] ([facility] APPL MODALITY 1/> AREAS ELEC STIMJ EA 15 MIN 0 12:00:00 AM EDT [facility] ([facility] APPLICATION MODALITY 1/> AREAS HOT/COLD PACKS 05/24/20 20 12:00:00 AM EDT [facility] ([facility] ) APPLICATION MODALITY 1/> AREAS HOT/COLD PACKS 05/22/20 12:00:00 AM EDT [facility] ([facility] ) APPL MODALITY 1/> AREAS ELEC STIMJ EA 15 MIN 0 12:00:00 AM EDT [facility] ([facility] ) THERAPEUTIC PX 1/> AREAS EACH 15 MIN EXERCISES 12:00:00 AM EDT [facility] ([facility] ) THERAPEUTIC PX 1/> AREAS EACH 15 MIN EXERCISES 12:00:00 AM EDT [facility] ([facility] APPL MODALITY 1/> AREAS ELEC STIMJ EA 15 MIN 0 12:00:00 AM EDT [facility] ([facility] Physical Therapy Eval - Low Complexity 05/17/2020 12:0 0:00 AM EDT [facility] ([facility] ) ARTHROCENTESIS ASPIR&/INJECTION MAJOR JT/BURSA 020 12:00:00 AM EDT [facility] ([facility] ) Results ID Date Data Source [id number] 07/25/2020 12:00:00 AM EST [facility] Name Value Range Interpretation Code Description Data April rce(s) Supporting Document(s) SARS-CoV2 [facility]igen [facility] and reported by [facility]. ID Date Data Source [id number] 04/05/2020 12:00:00 AM EDT [facility] Jamar Torrez MD Patient Name: MARIAH SHAFFER1 [facility] Date [place] : 1965[place] [address] Date of Exam: 04/05/2020#: Fax: [phone] EXAM: MRI SHOULDER RIGHT W/O&W/CONTRAST ARTHROGRAMCLINICAL INFORMATION: Fall, with pain.Pre and post contrast 3T MRI of the right shoulder with shoulder MRIarthrogram was performed utilizing various sequences.There is a partial full thickness tear anteriorly of the supraspinatustendon. There is moderate diffuse tendinopathy of the supraspinatus andsubscapularis tendons. I suspect a partial tear of the subscapularistendon. There are moderate hypertrophic degenerative changes of theacromioclavicular joint with subchondral marrow edema. Acromion is TypeII. Acromion is downward sloping. The biceps tendon is within thebicipital groove with mild surrounding fluid. There is no Hill-Sachsdeformity. The deltoid muscle demonstrates no abnormal signal. The bicepslabral complex is intact. No labral tear is seen. There does appear to bemild diffuse fraying of the posterior labrum. There is mild chondromalaciaat the glenohumeral joint. There is no occult fracture. There is rpjjw-ss-hniffkym joint fluid with fluid extending into thesubacromial/subdeltoid bursae.IMPRESSION:Moderate supraspinatus and subscapularis tendinopathy. Full thicknesspartial tear anterior supraspinatus tendon. I also suspect a partial tearof the sub scapularis tendon. There are moderate hypertrophic degenerativechanges of the acromioclavicular joint. Acromion is downward sloping andis Type II. There is mild fraying of the posterior labrum.Jeiv-qq-vsexeqhg joint effusion, with fluid extending into thesubacromial/subdeltoid bursae.Accredited by the [employer] in [place].Lonny Hernandez, AVA/Kandis you for referring YAMILET SHAFFER to our office. Electronically Signed - LONNY HERNANDEZ MD 04/05/20 16:38 Name Value Range Interpretation Code Description Data April rce(s) Supporting Document(s) ID Date Data Source [id number] 04/05/2020 12:00:00 AM EDT [facility] Kendy Torrez Pa-C Patient Name: YAMILET SHAFFER[address] [facility] Date of : 1965[place] [address]- Date of Exam: 04/05/2020PH#: Fax: [phone] EXAM: INJECTION PROCEDURE FOR SHOULDER ARTHROGRAMRIGHT SHOULDER ARTHROGRAM:The procedure was performed by JOE Tate, under the directsupervision of Dr. Hernandez.The benefits and risks including but not limited to pain, infection,bleeding and anaphylaxis were explained to the patient and informed consentwas obtained. The right glenohumeral joint space was localized usingfluoroscopic guidance. The skin was prepped and draped in a sterilefashion. 1% Lidocaine was used as a local anesthetic. Using fluoroscopicguidance, a #22 gauge spinal needle was inserted and advanced into theglenohumeral joint space. 0.5 cc of Omnipaque 300 was injected to verifyplacement. 11 cc of a solution containing 20 cc of sterile saline and 0.15cc of ProHance was injected into the joint space. The needle was removedand the patient was taken to MRI for post procedural imaging.The patient tolerated the procedure well and there were no immediatecomplications.Fluoroscopic images are performed with last image hold technology. Theseimages require no additional radiation to acquire.Fluoroscopy time was 1 second at 3 pulses/second. This is equal to .25seconds continuous fluoroscopy time which is a 75% reduction in radiation.Dictated by JOE Tate, with Dr. Hernandez.AVA Ballard/Kandis you for referring YAMILET SHAFFER to our office. Electronically Signed - LONNY HERNANDEZ MD 04/05/20 16:36 Name Value Range Interpretation Code Description Data April rce(s) Supporting Document(s) ID Date Data Source [id number] 04/05/2020 12:00:00 AM EDT [facility] Kendy Torrez Pa-C Patient Name: CHRISTIAN SHAFFER [facility] 1965[facility] [place] [address] Date of Exam: 04/05/2020#: Fax: [phone] EXAM: INJECTION PROCEDURE FOR SHOULDER ARTHROGRAMRIGHT SHOULDER ARTHROGRAM:The procedure was performed by JOE Tate, under the directsupervision of Dr. Hernandez.The benefits and risks including but not limited to pain, infection,bleeding and anaphylaxis were explained to the patient and informed consentwas obtained. The right glenohumeral joint space was localized usingfluoroscopic guidance. The skin was prepped and draped in a sterilefashion. 1% Lidocaine was used as a local anesthetic. Using fluoroscopicguidance, a #22 gauge spinal needle was inserted and advanced into theglenohumeral joint space. 0.5 cc of Omnipaque 300 was injected to verifyplacement. 11 cc of a solution containing 20 cc of sterile saline and 0.15cc of ProHance was injected into the joint space. The needle was removedand the patient was taken to MRI for post procedural imaging.The patient tolerated the procedure well and there were no immediatecomplications.Fluoroscopic images are performed with last image hold technology. Theseimages require no additional radiation to acquire.Fluoroscopy time was 1 second at 3 pulses/second. This is equal to .25seconds continuous fluoroscopy time which is a 75% reduction in radiation.Dictated by JOE Tate, with Dr. Hernandez.Lonny Hernandez, AVA/davidcTkera you for referring YAMILET SHAFFER to our office. Electronically Signed - LONNY HERNANDEZ MD 04/05/20 16:36 Name Value Range Interpretation Code Description Data April rce(s) Supporting Document(s) ID Date Data Source [id number] 03/13/2020 09:41:00 AM EDT [facility] ([facility] Name Value Range Interpretation Code Description Data April rce(s) Supporting Document(s) Color Urine Laboratory test result M EDENT ([facility] Appearance of Urine Laboratory test result [facility] ([facility] Specific [place] 1.025 1.00-1.03 [facility] ([facility] PH Urine 5.0 5.0-8.0 [facility] ([facility] Glucose Urine Laboratory test result [facility] ([facility] Bilirubin.total [Presence] in Urine by Test strip Laboratory test res ult [facility] ([facility] Ketones Laboratory test result [facility] ([facility] Blood Urine Laboratory test result M EDENT ([facility] [facility] Protein Urine Laboratory test result [facility] ([facility] Urobilinogen 0.2 EU/dl 0.2-1.0 [facility] ([facility] Nitrite Laboratory test result [facility] ([facility] Leukocytes Laboratory test result ME DENT ([facility] ID Date Data Source [id number] 03/13/2020 08:58:00 AM EDT [facility] ([facility] Name Value Range Interpretation Code Description Data April rce(s) Supporting Document(s) Prostate specific Ag [Mass/volume] in Serum or Plasma 1.47 ng/mL 0.0- 4.0 [facility] ([facility] ID Date Data Source [id number] 03/13/2020 08:57:00 AM EDT [facility] ([facility] Name Value Range Interpretation Code Description Data April rce(s) Supporting Document(s) Thyrotropin [Units/volume] in Serum or Plasma 0.994 ulU/mL 0.60-4.8 [facility] ([facility] ID Date Data Source [id number] 03/13/2020 08:55:00 AM EDT [facility] ([facility] Name Value Range Interpretation Code Description Data April rce(s) Supporting Document(s) Chol 188 mg/dL 0-200 [facility] NORMAL RANGES Age WBC RBC HGB HCT [...] HCT IS 5% LESS SOURCE FOR DATA: [employer] 1800 OPERATION MANUAL( AUTOMATED BLOOD COUNTS ANDDIFF.) [...] DESIRABLE: <130 MG/DL <110 MG/DL BORDERLINE-HIGH RISK: 130- 159 MG/DL 110-129 MG/DL HIGH RISK: >160 MG/DL >130 MG/DL *CHILDREN AND ADOLESCENTS REPRESENTS INDIVIDUALA AGED 2-19 YEARS EXCLUSIVE. Trig 76 mg/dL 35-200 [facility] NORMAL RANGES Age WBC RBC HGB HCT [...] HCT IS 5% LESS SOURCE FOR DATA: [employer] 1800 OPERATION MANUAL( AUTOMATED BLOOD COUNTS ANDDIFF.) [...] DESIRABLE: <130 MG/DL <110 MG/DL BORDERLINE-HIGH RISK: 130- 159 MG/DL 110-129 MG/DL HIGH RISK: >160 MG/DL >130 MG/DL *CHILDREN AND ADOLESCENTS REPRESENTS INDIVIDUALA AGED 2-19 YEARS EXCLUSIVE. Cholesterol in HDL [Mass/volume] in Serum or Plasma 52 mg/dL 35-55 [facility] ([facility] NORMAL RANGES Age WBC RBC HGB HCT [...] HCT IS 5% LESS SOURCE FOR DATA: [employer] 1800 OPERATION MANUAL( AUTOMATED BLOOD COUNTS ANDDIFF.) [...] DESIRABLE: <130 MG/DL <110 MG/DL BORDERLINE-HIGH RISK: 130- 159 MG/DL 110-129 MG/DL HIGH RISK: >160 MG/DL >130 MG/DL *CHILDREN AND ADOLESCENTS REPRESENTS INDIVIDUALA AGED 2-19 YEARS EXCLUSIVE. LDL_C 121 Calc 75-129 [facility] NORMAL RANGES Age WBC RBC HGB HCT [...] HCT IS 5% LESS SOURCE FOR DATA: [employer] 1800 OPERATION MANUAL( AUTOMATED BLOOD COUNTS ANDDIFF.) [...] DESIRABLE: <130 MG/DL <110 MG/DL BORDERLINE-HIGH RISK: 130- 159 MG/DL 110-129 MG/DL HIGH RISK: >160 MG/DL >130 MG/DL *CHILDREN AND ADOLESCENTS REPRESENTS INDIVIDUALA AGED 2-19 YEARS EXCLUSIVE. Cho/HDL Ratio 3.6 Calc [facility] ([facility] NORMAL RANGES Age WBC RBC HGB HCT [...] HCT IS 5% LESS SOURCE FOR DATA: [employer] 1800 OPERATION MANUAL( AUTOMATED BLOOD COUNTS ANDDIFF.) [...] DESIRABLE: <130 MG/DL <110 MG/DL BORDERLINE-HIGH RISK: 130- 159 MG/DL 110-129 MG/DL HIGH RISK: >160 MG/DL >130 MG/DL *CHILDREN AND ADOLESCENTS REPRESENTS INDIVIDUALA AGED 2-19 YEARS EXCLUSIVE. ID Date Data Source [id number] 03/13/2020 08:55:00 AM EDT MED[facility] ([facility] Name Value Range Interpretation Code Description Data April rce(s) Supporting Document(s) BUN 14 mg/dL 8-23 [facility] ([facility] NORMAL RANGES Age WBC RBC HGB HCT [...] HCT IS 5% LESS SOURCE FOR DATA: [employer] 1800 OPERATION MANUAL( AUTOMATED BLOOD COUNTS ANDDIFF.) [...] DESIRABLE: <130 MG/DL <110 MG/DL BORDERLINE-HIGH RISK: 130- 159 MG/DL 110-129 MG/DL HIGH RISK: >160 MG/DL >130 MG/DL *CHILDREN AND ADOLESCENTS REPRESENTS INDIVIDUALA AGED 2-19 YEARS EXCLUSIVE. Glu 103 mg/dL 70-110 [facility] ([facility] NORMAL RANGES Age WBC RBC HGB HCT [...] DESIRABLE: <130 MG/DL <110 MG/DL BORDERLINE-HIGH RISK: 130- 159 MG/DL 110-129 MG/DL HIGH RISK: >160 MG/DL >130 MG/DL *CHILDREN AND ADOLESCENTS REPRESENTS INDIVIDUALA AGED 2-19 YEARS EXCLUSIVE. Creat 0.8 mg/dL 0.7-1.2 [facility] ([facility] NORMAL RANGES Age WBC RBC HGB HCT [...] HCT IS 5% LESS SOURCE FOR DATA: [employer] 1800 OPERATION MANUAL( AUTOMATED BLOOD COUNTS ANDDIFF.) [...] DESIRABLE: <130 MG/DL <110 MG/DL BORDERLINE-HIGH RISK: 130- 159 MG/DL 110-129 MG/DL HIGH RISK: >160 MG/DL >130 MG/DL *CHILDREN AND ADOLESCENTS REPRESENTS INDIVIDUALA AGED 2-19 YEARS EXCLUSIVE. BUN/Creatinine Ratio 18.3 CALC MED[facility] ([facility] NORMAL RANGES Age WBC RBC HGB HCT [...] HCT IS 5% LESS SOURCE FOR DATA: [employer] 1800 OPERATION MANUAL( AUTOMATED BLOOD COUNTS ANDDIFF.) [...] DESIRABLE: <130 MG/DL <110 MG/DL BORDERLINE-HIGH RISK: 130- 159 MG/DL 110-129 MG/DL HIGH RISK: >160 MG/DL >130 MG/DL *CHILDREN AND ADOLESCENTS REPRESENTS INDIVIDUALA AGED 2-19 YEARS EXCLUSIVE. CL 105.4 mmol/L 98.0-107.0 [facility] NORMAL RANGES Age WBC RBC HGB HCT [...] HCT IS 5% LESS SOURCE FOR DATA: [employer] DYN 1800 OPERATION MANUAL( AUTOMATED BLOOD COUNTS [...] DESIRABLE: <130 MG/DL <110 MG/DL BORDERLINE-HIGH RISK: 130- 159 MG/DL 110-129 MG/DL HIGH RISK: >160 MG/DL >130 MG/DL *CHILDREN AND ADOLESCENTS REPRESENTS INDIVIDUALA AGED 2-19 YEARS EXCLUSIVE. Na 140 mmol/L 136-145 [facility] ([facility] NORMAL RANGES Age WBC RBC HGB HCT [...] HCT IS 5% LESS SOURCE FOR DATA: [employer] 1800 OPERATION MANUAL( AUTOMATED BLOOD COUNTS ANDDIFF.) [...] DESIRABLE: <130 MG/DL <110 MG/DL BORDERLINE-HIGH RISK: 130- 159 MG/DL 110-129 MG/DL HIGH RISK: >160 MG/DL >130 MG/DL *CHILDREN AND ADOLESCENTS REPRESENTS INDIVIDUALA AGED 2-19 YEARS EXCLUSIVE. K 4.1 mmol/L 3.5-5.1 [facility] ([facility] NORMAL RANGES Age WBC RBC HGB HCT [...] HCT IS 5% LESS SOURCE FOR DATA: [employer] 1800 OPERATION MANUAL( AUTOMATED BLOOD COUNTS ANDDIFF.) [...] DESIRABLE: <130 MG/DL <110 MG/DL BORDERLINE-HIGH RISK: 130- 159 MG/DL 110-129 MG/DL HIGH RISK: >160 MG/DL >130 MG/DL *CHILDREN AND ADOLESCENTS REPRESENTS INDIVIDUALA AGED 2-19 YEARS EXCLUSIVE. Co2 24.0 mmol/L 22.0-29.0 [employer] ([facility] NORMAL RANGES Age WBC RBC HGB HCT [...] HCT IS 5% LESS SOURCE FOR DATA: [employer] 1800 OPERATION MANUAL( AUTOMATED BLOOD COUNTS ANDDIFF.) [...] DESIRABLE: <130 MG/DL <110 MG/DL BORDERLINE-HIGH RISK: 130- 159 MG/DL 110-129 MG/DL HIGH RISK: >160 MG/DL >130 MG/DL *CHILDREN AND ADOLESCENTS REPRESENTS INDIVIDUALA AGED 2-19 YEARS EXCLUSIVE. CA 9.4 mg/dL 8.6-10.2 [facility] ([facility] NORMAL RANGES Age WBC RBC HGB HCT [...] HCT IS 5% LESS SOURCE FOR DATA: [employer] 1800 OPERATION MANUAL( AUTOMATED BLOOD COUNTS ANDDIFF.) [...] DESIRABLE: <130 MG/DL <110 MG/DL BORDERLINE-HIGH RISK: 130- 159 MG/DL 110-129 MG/DL HIGH RISK: >160 MG/DL >130 MG/DL *CHILDREN AND ADOLESCENTS REPRESENTS INDIVIDUALA AGED 2-19 YEARS EXCLUSIVE. TP 6.6 g/dL 6.6-8.7 [facility] NORMAL RANGES Age WBC RBC HGB HCT [...] HCT IS 5% LESS SOURCE FOR DATA: [employer] 1800 OPERATION MANUAL( AUTOMATED BLOOD COUNTS ANDDIFF.) [...] DESIRABLE: <130 MG/DL <110 MG/DL BORDERLINE-HIGH RISK: 130- 159 MG/DL 110-129 MG/DL HIGH RISK: >160 MG/DL >130 MG/DL *CHILDREN AND ADOLESCENTS REPRESENTS INDIVIDUALA AGED 2-19 YEARS EXCLUSIVE. A/G Ratio 1.9 CALC [facility] ([facility] NORMAL RANGES Age WBC RBC HGB HCT [...] HCT IS 5% LESS SOURCE FOR DATA: [employer] 1800 OPERATION MANUAL( AUTOMATED BLOOD COUNTS ANDDIFF.) [...] DESIRABLE: <130 MG/DL <110 MG/DL BORDERLINE-HIGH RISK: 130- 159 MG/DL 110-129 MG/DL HIGH RISK: >160 MG/DL >130 MG/DL *CHILDREN AND ADOLESCENTS REPRESENTS INDIVIDUALA AGED 2-19 YEARS EXCLUSIVE. Globulin 2.3 CALC [facility] ([facility] NORMAL RANGES Age WBC RBC HGB HCT [...] HCT IS 5% LESS SOURCE FOR DATA: [employer] 1800 OPERATION MANUAL( AUTOMATED BLOOD COUNTS ANDDIFF.) [...] DESIRABLE: <130 MG/DL <110 MG/DL BORDERLINE-HIGH RISK: 130- 159 MG/DL 110-129 MG/DL HIGH RISK: >160 MG/DL >130 MG/DL *CHILDREN AND ADOLESCENTS REPRESENTS INDIVIDUALA AGED 2-19 YEARS EXCLUSIVE. Alb 4.4 g/dL 3.5-5.2 [facility] NORMAL RANGES Age WBC RBC HGB HCT [...] HCT IS 5% LESS SOURCE FOR DATA: [employer] 1800 OPERATION MANUAL( AUTOMATED BLOOD COUNTS ANDDIFF.) [...] DESIRABLE: <130 MG/DL <110 MG/DL BORDERLINE-HIGH RISK: 130- 159 MG/DL 110-129 MG/DL HIGH RISK: >160 MG/DL >130 MG/DL *CHILDREN AND ADOLESCENTS REPRESENTS INDIVIDUALA AGED 2-19 YEARS EXCLUSIVE. Alp 102.0 U/L 40-129 [facility] ([facility] NORMAL RANGES Age WBC RBC HGB HCT [...] HCT IS 5% LESS SOURCE FOR DATA: [employer] 1800 OPERATION MANUAL( AUTOMATED BLOOD COUNTS ANDDIFF.) [...] DESIRABLE: <130 MG/DL <110 MG/DL BORDERLINE-HIGH RISK: 130- 159 MG/DL 110-129 MG/DL HIGH RISK: >160 MG/DL >130 MG/DL *CHILDREN AND ADOLESCENTS REPRESENTS INDIVIDUALA AGED 2-19 YEARS EXCLUSIVE. Alt (SGPT) 37 U/L 0-41 [facility] ([facility] NORMAL RANGES Age WBC RBC HGB HCT [...] HCT IS 5% LESS SOURCE FOR DATA: [employer] 1800 OPERATION MANUAL( AUTOMATED BLOOD COUNTS ANDDIFF.) [...] DESIRABLE: <130 MG/DL <110 MG/DL BORDERLINE-HIGH RISK: 130- 159 MG/DL 110-129 MG/DL HIGH RISK: >160 MG/DL >130 MG/DL *CHILDREN AND ADOLESCENTS REPRESENTS INDIVIDUALA AGED 2-19 YEARS EXCLUSIVE. Ast (Sgot) 25 U/L 0-40 [facility] ([facility] NORMAL RANGES Age WBC RBC HGB HCT [...] HCT IS 5% LESS SOURCE FOR DATA: [employer] 1800 OPERATION MANUAL( AUTOMATED BLOOD COUNTS ANDDIFF.) [...] DESIRABLE: <130 MG/DL <110 MG/DL BORDERLINE-HIGH RISK: 130- 159 MG/DL 110-129 MG/DL HIGH RISK: >160 MG/DL >130 MG/DL *CHILDREN AND ADOLESCENTS REPRESENTS INDIVIDUALA AGED 2-19 YEARS EXCLUSIVE. Osmolality-Calculated 281.0 CALC MED [facility] ([facility] NORMAL RANGES Age WBC RBC HGB HCT [...] HCT IS 5% LESS SOURCE FOR DATA: [employer] 1800 OPERATION MANUAL( AUTOMATED BLOOD COUNTS ANDDIFF.) [...] DESIRABLE: <130 MG/DL <110 MG/DL BORDERLINE-HIGH RISK: 130- 159 MG/DL 110-129 MG/DL HIGH RISK: >160 MG/DL >130 MG/DL *CHILDREN AND ADOLESCENTS REPRESENTS INDIVIDUALA AGED 2-19 YEARS EXCLUSIVE. Tbili 0.53 mg/dL 0.0-1.2 [facility] ([facility] NORMAL RANGES Age WBC RBC HGB HCT [...] HCT IS 5% LESS SOURCE FOR DATA: [employer] 1800 OPERATION MANUAL( AUTOMATED BLOOD COUNTS ANDDIFF.) [...] DESIRABLE: <130 MG/DL <110 MG/DL BORDERLINE-HIGH RISK: 130- 159 MG/DL 110-129 MG/DL HIGH RISK: >160 MG/DL >130 MG/DL *CHILDREN AND ADOLESCENTS REPRESENTS INDIVIDUALA AGED 2-19 YEARS EXCLUSIVE. Anion Gap 15 mmol/L [facility] ([facility] NORMAL RANGES Age WBC RBC HGB HCT [...] DESIRABLE: <130 MG/DL <110 MG/DL BORDERLINE-HIGH RISK: 130- 159 MG/DL 110-129 MG/DL HIGH RISK: >160 MG/DL >130 MG/DL *CHILDREN AND ADOLESCENTS REPRESENTS INDIVIDUALA AGED 2-19 YEARS EXCLUSIVE. eGFR 117 # [facility] ( [facility] NORMAL RANGES Age WBC RBC HGB HCT [...] HCT IS 5% LESS SOURCE FOR DATA: [employer] 1800 OPERATION MANUAL( AUTOMATED BLOOD COUNTS ANDDIFF.) [...] DESIRABLE: <130 MG/DL <110 MG/DL BORDERLINE-HIGH RISK: 130- 159 MG/DL 110-129 MG/DL HIGH RISK: >160 MG/DL >130 MG/DL *CHILDREN AND ADOLESCENTS REPRESENTS INDIVIDUALA AGED 2-19 YEARS EXCLUSIVE. eGFR Non-Afr. Eritrean 101 # [facility] ([facility] NORMAL RANGES Age WBC RBC HGB HCT [...] HCT IS 5% LESS SOURCE FOR DATA: [employer] 1800 OPERATION MANUAL( AUTOMATED BLOOD COUNTS ANDDIFF.) [...] DESIRABLE: <130 MG/DL <110 MG/DL BORDERLINE-HIGH RISK: 130- 159 MG/DL 110-129 MG/DL HIGH RISK: >160 MG/DL >130 MG/DL *CHILDREN AND ADOLESCENTS REPRESENTS INDIVIDUALA AGED 2-19 YEARS EXCLUSIVE. ID Date Data Source [id number] 03/13/2020 08:55:00 AM EDT [facility] ([facility] Name Value Range Interpretation Code Description Data April rce(s) Supporting Document(s) WBC 4.6 10E3/uL 4.1-10.9 [facility] ([facility] NORMAL RANGES Age WBC RBC HGB HCT [...] HCT IS 5% LESS SOURCE FOR DATA: [employer] 1800 OPERATION MANUAL( AUTOMATED BLOOD COUNTS ANDDIFF.) [...] DESIRABLE: <130 MG/DL <110 MG/DL BORDERLINE-HIGH RISK: 130- 159 MG/DL 110-129 MG/DL HIGH RISK: >160 MG/DL >130 MG/DL *CHILDREN AND ADOLESCENTS REPRESENTS INDIVIDUALA AGED 2-19 YEARS EXCLUSIVE. RBC 5.78 10E6/uL 4.20-6.30 [facility] ([facility] NORMAL RANGES Age WBC RBC HGB HCT [...] HCT IS 5% LESS SOURCE FOR DATA: [employer] 1800 OPERATION MANUAL( AUTOMATED BLOOD COUNTS ANDDIFF.) [...] DESIRABLE: <130 MG/DL <110 MG/DL BORDERLINE-HIGH RISK: 130- 159 MG/DL 110-129 MG/DL HIGH RISK: >160 MG/DL >130 MG/DL *CHILDREN AND ADOLESCENTS REPRESENTS INDIVIDUALA AGED 2-19 YEARS EXCLUSIVE. HGB 17.0 g/dL 12.0-18.0 [facility] ([facility] NORMAL RANGES Age WBC RBC HGB HCT [...] HCT IS 5% LESS SOURCE FOR DATA: [employer] 1800 OPERATION MANUAL( AUTOMATED BLOOD COUNTS ANDDIFF.) [...] DESIRABLE: <130 MG/DL <110 MG/DL BORDERLINE-HIGH RISK: 130- 159 MG/DL 110-129 MG/DL HIGH RISK: >160 MG/DL >130 MG/DL *CHILDREN AND ADOLESCENTS REPRESENTS INDIVIDUALA AGED 2-19 YEARS EXCLUSIVE. HCT 49.8 % 37.0-51.0 [facility] ([facility] NORMAL RANGES Age WBC RBC HGB HCT [...] HCT IS 5% LESS SOURCE FOR DATA: [employer] 1800 OPERATION MANUAL( AUTOMATED BLOOD COUNTS ANDDIFF.) [...] DESIRABLE: <130 MG/DL <110 MG/DL BORDERLINE-HIGH RISK: 130- 159 MG/DL 110-129 MG/DL HIGH RISK: >160 MG/DL >130 MG/DL *CHILDREN AND ADOLESCENTS REPRESENTS INDIVIDUALA AGED 2-19 YEARS EXCLUSIVE. MCV 86.2 fL 80.0-97.0 [facility] ([facility] NORMAL RANGES Age WBC RBC HGB HCT [...] HCT IS 5% LESS SOURCE FOR DATA: [employer] 1800 OPERATION MANUAL( AUTOMATED BLOOD COUNTS ANDDIFF.) [...] DESIRABLE: <130 MG/DL <110 MG/DL BORDERLINE-HIGH RISK: 130- 159 MG/DL 110-129 MG/DL HIGH RISK: >160 MG/DL >130 MG/DL *CHILDREN AND ADOLESCENTS REPRESENTS INDIVIDUALA AGED 2-19 YEARS EXCLUSIVE. MCH 29.4 pg 26.0-32.0 [facility] NORMAL RANGES Age WBC RBC HGB HCT [...] HCT IS 5% LESS SOURCE FOR DATA: [employer] 1800 OPERATION MANUAL( AUTOMATED BLOOD COUNTS ANDDIFF.) [...] DESIRABLE: <130 MG/DL <110 MG/DL BORDERLINE-HIGH RISK: 130- 159 MG/DL 110-129 MG/DL HIGH RISK: >160 MG/DL >130 MG/DL *CHILDREN AND ADOLESCENTS REPRESENTS INDIVIDUALA AGED 2-19 YEARS EXCLUSIVE. MCHC 34.1 g/dL 31.0-36.0 [facility] ([facility] NORMAL RANGES Age WBC RBC HGB HCT [...] HCT IS 5% LESS SOURCE FOR DATA: [employer] 1800 OPERATION MANUAL( AUTOMATED BLOOD COUNTS ANDDIFF.) [...] DESIRABLE: <130 MG/DL <110 MG/DL BORDERLINE-HIGH RISK: 130- 159 MG/DL 110-129 MG/DL HIGH RISK: >160 MG/DL >130 MG/DL *CHILDREN AND ADOLESCENTS REPRESENTS INDIVIDUALA AGED 2-19 YEARS EXCLUSIVE. PLT 173 10E3/uL 140-440 [facility] ([facility] NORMAL RANGES Age WBC RBC HGB HCT [...] HCT IS 5% LESS SOURCE FOR DATA: [employer] 1800 OPERATION MANUAL( AUTOMATED BLOOD COUNTS ANDDIFF.) [...] DESIRABLE: <130 MG/DL <110 MG/DL BORDERLINE-HIGH RISK: 130- 159 MG/DL 110-129 MG/DL HIGH RISK: >160 MG/DL >130 MG/DL *CHILDREN AND ADOLESCENTS REPRESENTS INDIVIDUALA AGED 2-19 YEARS EXCLUSIVE. Lym% 23.5 % 10.0-58.5 [facility] ([facility] NORMAL RANGES Age WBC RBC HGB HCT [...] HCT IS 5% LESS SOURCE FOR DATA: [employer] 1800 OPERATION MANUAL( AUTOMATED BLOOD COUNTS ANDDIFF.) [...] DESIRABLE: <130 MG/DL <110 MG/DL BORDERLINE-HIGH RISK: 130- 159 MG/DL 110-129 MG/DL HIGH RISK: >160 MG/DL >130 MG/DL *CHILDREN AND ADOLESCENTS REPRESENTS INDIVIDUALA AGED 2-19 YEARS EXCLUSIVE. RDW-CV 13.4 % 11.5-14.5 [facility] ([facility] NORMAL RANGES Age WBC RBC HGB HCT [...] HCT IS 5% LESS SOURCE FOR DATA: [employer] 1800 OPERATION MANUAL( AUTOMATED BLOOD COUNTS ANDDIFF.) [...] DESIRABLE: <130 MG/DL <110 MG/DL BORDERLINE-HIGH RISK: 130- 159 MG/DL 110-129 MG/DL HIGH RISK: >160 MG/DL >130 MG/DL *CHILDREN AND ADOLESCENTS REPRESENTS INDIVIDUALA AGED 2-19 YEARS EXCLUSIVE. Neut% 65.5 % 37.0-92.0 [facility] ([facility] NORMAL RANGES Age WBC RBC HGB HCT [...] HCT IS 5% LESS SOURCE FOR DATA: [employer] 1800 OPERATION MANUAL( AUTOMATED BLOOD COUNTS ANDDIFF.) [...] DESIRABLE: <130 MG/DL <110 MG/DL BORDERLINE-HIGH RISK: 130- 159 MG/DL 110-129 MG/DL HIGH RISK: >160 MG/DL >130 MG/DL *CHILDREN AND ADOLESCENTS REPRESENTS INDIVIDUALA AGED 2-19 YEARS EXCLUSIVE. MXD% 11.0 % 0.1-24.0 [facility] ([facility] NORMAL RANGES Age WBC RBC HGB HCT [...] HCT IS 5% LESS SOURCE FOR DATA: [employer] 1800 OPERATION MANUAL( AUTOMATED BLOOD COUNTS ANDDIFF.) [...] DESIRABLE: <130 MG/DL <110 MG/DL BORDERLINE-HIGH RISK: 130- 159 MG/DL 110-129 MG/DL HIGH RISK: >160 MG/DL >130 MG/DL *CHILDREN AND ADOLESCENTS REPRESENTS INDIVIDUALA AGED 2-19 YEARS EXCLUSIVE. Lym# 1.1 10E3/uL 0.6-4.1 [facility] ([facility] NORMAL RANGES Age WBC RBC HGB HCT [...] HCT IS 5% LESS SOURCE FOR DATA: [employer] 1800 OPERATION MANUAL( AUTOMATED BLOOD COUNTS ANDDIFF.) [...] DESIRABLE: <130 MG/DL <110 MG/DL BORDERLINE-HIGH RISK: 130- 159 MG/DL 110-129 MG/DL HIGH RISK: >160 MG/DL >130 MG/DL *CHILDREN AND ADOLESCENTS REPRESENTS INDIVIDUALA AGED 2-19 YEARS EXCLUSIVE. MXD# 0.5 10E3/uL 0.0-1.8 [facility] ([facility] NORMAL RANGES Age WBC RBC HGB HCT [...] HCT IS 5% LESS SOURCE FOR DATA: [employer] 1800 OPERATION MANUAL( AUTOMATED BLOOD COUNTS ANDDIFF.) [...] DESIRABLE: <130 MG/DL <110 MG/DL BORDERLINE-HIGH RISK: 130- 159 MG/DL 110-129 MG/DL HIGH RISK: >160 MG/DL >130 MG/DL *CHILDREN AND ADOLESCENTS REPRESENTS INDIVIDUALA AGED 2-19 YEARS EXCLUSIVE. Neut# 3.0 % 2.0-7.8 [facility] ([facility] NORMAL RANGES Age WBC RBC HGB HCT [...] HCT IS 5% LESS SOURCE FOR DATA: [employer] 1800 OPERATION MANUAL( AUTOMATED BLOOD COUNTS ANDDIFF.) [...] DESIRABLE: <130 MG/DL <110 MG/DL BORDERLINE-HIGH RISK: 130- 159 MG/DL 110-129 MG/DL HIGH RISK: >160 MG/DL >130 MG/DL *CHILDREN AND ADOLESCENTS REPRESENTS INDIVIDUALA AGED 2-19 YEARS EXCLUSIVE. MPV 11.1 fL 9.0-13.0 [facility] ([facility] NORMAL RANGES Age WBC RBC HGB HCT [...] HCT IS 5% LESS SOURCE FOR DATA: [employer] 1800 OPERATION MANUAL( AUTOMATED BLOOD COUNTS ANDDIFF.) [...] DESIRABLE: <130 MG/DL <110 MG/DL BORDERLINE-HIGH RISK: 130- 159 MG/DL 110-129 MG/DL HIGH RISK: >160 MG/DL >130 MG/DL *CHILDREN AND ADOLESCENTS REPRESENTS INDIVIDUALA AGED 2-19 YEARS EXCLUSIVE. Procedure Vital Signs ID Date Data Source UNK Name Value Range Interpretation Code Description Data Source(s) [place] body weight 184 [lb_av] 184 [lb_av] [facility] T ([facility]) Body mass index (BMI) [Ratio] 39.3 kg/m2 39.3 k g/m2 [facility] ([facility]) Body weight 298.00 [lb_av] 298.00 [lb_av] [facility] T ([facility]) Body height 73 [in_i] 73 [in_i] [facility] ([facility]) 6'1" Respiratory rate 12 /min 12 /min [facility] ( [facility]) Oxygen saturation in Arterial blood by Pulse oximetry 97 % 97 % [facility] ([facility]) Body mass index (BMI) [Ratio] 39.3 kg/m2 39.3 [facility] Body weight 298.00 [lb_av] 298.00 [lb_av] [facility] T ([facility]) Body height 73 [in_i] 73 [in_i] [facility] ([facility]) 6'1" Respiratory rate 16 /min 16 /min [facility] ( [facility]) Body temperature 98.2 [degF] 98.2 [degF] [facility] ([facility]) Heart rate 100 /min 100 /min [facility] ([facility]) Diastolic blood pressure 90 mm[Hg] 90 mm[Hg] [facility] ([facility]) Systolic blood pressure 124 mm[Hg] 124 mm[Hg] M EDENT ([facility]) Oxygen saturation in Arterial blood by Pulse oximetry 97 % 97 % [facility] ([facility] Body mass index (BMI) [Ratio] 39.3 kg/m2 39.3 k g/m2 [facility] ([facility] [place] body weight 184 [lb_av] 184 [lb_av] [facility] T ([facility] Body weight 298.00 [lb_av] 298.00 [lb_av] [facility] T ([facility] Body height 73 [in_i] 73 [in_i] [facility] ([facility] 6'1" Respiratory rate 16 /min 16 /min [facility] ( [facility] Heart rate 100 /min 100 /min [facility] ([facility] Body temperature 98.2 [degF] 98.2 [degF] [facility] ([facility] Diastolic blood pressure 90 mm[Hg] 90 mm[Hg] [facility] ([facility] Systolic blood pressure 124 mm[Hg] 124 mm[Hg] M EDENT ([facility] Oxygen saturation in Arterial blood by Pulse oximetry 96 % 96 % [facility] ([facility] Body mass index (BMI) [Ratio] 39.4 kg/m2 39.4 k g/m2 [facility] ([facility] [place] body weight 184 [lb_av] 184 [lb_av] MEDEN T ([facility] Body weight 299.00 [lb_av] 299.00 [lb_av] MEDEN T ([facility] Body height 73 [in_i] 73 [in_i] MEDENT ([facility] 6'1" Respiratory rate 16 /min 16 /min MEDENT ( [facility] Heart rate 81 /min 81 /min MED[facility] ([facility] Body temperature 97.3 [degF] 97.3 [degF] MEDENT ([facility] Diastolic blood pressure 88 mm[Hg] 88 mm[Hg] MEDENT ([facility] Systolic blood pressure 130 mm[Hg] 130 mm[Hg] M EDENT ([facility] Diastolic blood pressure 90 mm[Hg] 90 mm[Hg] MED[facility] ([facility] Systolic blood pressure 146 mm[Hg] 146 mm[Hg] M EDENT ([facility] Oxygen saturation in Arterial blood by Pulse oximetry 97 % 97 % MEDENT ([facility] Body mass index (BMI) [Ratio] 38.5 kg/m2 38.5 k g/m2 MEDENT ([facility] [place] body weight 184 [lb_av] 184 [lb_av] MEDEN T ([facility] Body weight 292.00 [lb_av] 292.00 [lb_av] MEDEN T ([facility] Body height 73 [in_i] 73 [in_i] MEDENT ([facility] 6'1" Respiratory rate 16 /min 16 /min MEDENT ( [facility] Heart rate 72 /min 72 /min MED[facility] ([facility] Body temperature 99.2 [degF] 99.2 [degF] MEDENT ([facility] Diastolic blood pressure 84 mm[Hg] 84 mm[Hg] MEDENT ([facility] Systolic blood pressure 122 mm[Hg] 122 mm[Hg] M [facility] [facility] Body mass index (BMI) [Ratio] 39.6 kg/m2 39.6 k g/m2 MEDENT ([facility]) Body weight 300.00 [lb_av] 300.00 [lb_av] MEDEN T ([facility]) Body height 73 [in_i] 73 [in_i] MEDENT ([facility]) 6'1" Body temperature 98.7 [degF] 98.7 [degF] MEDENT ([facility]) Diastolic blood pressure 84 mm[Hg] 84 mm[Hg] eCW1 ([facility]) Systolic blood pressure 153 mm[Hg] 153 mm[Hg] e CW1 ([facility]) Body temperature 100.0 [degF] 100.0 [degF] eCW1 ([facility]) Respiratory rate 18 /min 18 /min eCW1 ([facility]) Heart rate 76 /min 76 /min eCW1 ([facility]) Body mass index (BMI) [Ratio] 39.97 kg/m2 39.97 kg/m2 eCW1 ([facility]) Body height 73 [in_us] 73 [in_us] eCW1 ([facility]) Body weight Measured 303 [lb_av] 303 [lb_av] eC W1 ([facility]) Oxygen saturation in Arterial blood by Pulse oximetry 97 % 97 % MEDENT ([facility] Body mass index (BMI) [Ratio] 39.7 kg/m2 39.7 k g/m2 MEDENT ([facility] Body weight 301.00 [lb_av] 301.00 [lb_av] MEDEN T ([facility] Body height 73 [in_i] 73 [in_i] MEDENT ([facility] 6'1" Respiratory rate 16 /min 16 /min MEDENT ( [facility] Heart rate 74 /min 74 /min MEDENT ([facility] Body temperature 98.6 [degF] 98.6 [degF] MEDENT ([facility] Diastolic blood pressure 86 mm[Hg] 86 mm[Hg] MEDENT ([facility] Systolic blood pressure 132 mm[Hg] 132 mm[Hg] M EDENT ([facility] Oxygen saturation in Arterial blood by Pulse oximetry 96 % 96 % MEDENT ([facility] Body mass index (BMI) [Ratio] 38.9 kg/m2 38.9 k g/m2 MEDENT ([facility] Body weight 295.00 [lb_av] 295.00 [lb_av] MEDEN T ([facility] Body height 73 [in_i] 73 [in_i] MEDENT ([facility] 6'1" Respiratory rate 16 /min 16 /min MEDENT ( [facility] Heart rate 76 /min 76 /min MEDENT ([facility] Body temperature 98.8 [degF] 98.8 [degF] MEDENT ([facility] Diastolic blood pressure 86 mm[Hg] 86 mm[Hg] MEDENT ([facility] Systolic blood pressure 130 mm[Hg] 130 mm[Hg] M EDENT ([facility] Diastolic blood pressure 90 mm[Hg] 90 mm[Hg] KERRI ([facility] Systolic blood pressure 134 mm[Hg] 134 mm[Hg] Cesario MENDEZ ([facility]
--- NOTE | 2020-09-21 16:35 | REP ---
INDICATION: fall. COMPARISON: None. TECHNIQUE: Four views FINDINGS: There is a fracture of the distal radius with an intra-articular component. There is a triquetral fracture. Flake like ossific densities are seen proximal to the base of the 1st metacarpal. IMPRESSION: 1. Distal radial fracture as described above. 2. Triquetral fracture. 3. Degenerative changes versus concomitant avulsion fracture arising from the base of the 1st metacarpal. <Electronically signed by Jayme Schneider > 09/21/20 [id number]
--- NOTE | 2020-09-21 16:37 | REP ---
INDICATION: fall. COMPARISON: None TECHNIQUE: Four views with frontal view of the chest FINDINGS: Multiple views of the left ribs show no fracture or osseous lesion. The accompanying frontal view of the chest shows no cardiomegaly, infiltrates, effusions, or pneumothoraces. There is a calcified granuloma in the right upper lobe IMPRESSION: Negative left rib series. <Electronically signed by Jayme Schneider > 09/21/20 [id number]
[2020-09-21] MEDS ORDERED: ACETAMINOPHEN 500 MG TAB PO ONE (17:00)
[2020-09-21 17:36] LABS: BASO % 0.6 % (0.0-1.0); EOS # 0.1 10^3/uL (0.0-0.5); EOS % 1.8 % (0.0-3.0); HEMATOCRIT 50.9 % (42.0-52.0); HEMOGLOBIN 16.6 g/dl (13.5-17.5); LYMPH % 14.5 % (24.0-44.0); MEAN CORPUSCULAR HEMOGLOBIN 28.6 pg (27.0-33.0); MEAN CORPUSCULAR HGB CONC 32.6 g/dl (32.0-36.5); MEAN CORPUSCULAR VOLUME 87.8 fl (80.0-96.0); MONO # 0.4 10^3/uL (0.0-0.8); MONO % 6.2 % (0.0-5.0); NEUTROPHILS # 5.4 10^3/uL (1.5-8.5); NEUTROPHILS % 76.3 % (36.0-66.0); PLATELET COUNT, AUTOMATED 189 10^3/uL (150-450); WHITE BLOOD COUNT 7.1 10^3/uL (4.0-10.0)
[2020-09-21] MEDS ORDERED: ISOVUE-370 76% 100ML VIAL As Ordered ONE (17:41)
--- OUTSIDE RECORDS SUMMARY | 2020-09-21 18:04 | CCD ---
Author Author [facility] Organization [facility] Address Unknown Phone Unavailable Care Team Providers Care Trim Machine Operator Name Role Phone [facility], [facility] Alissa [facility], PA-C Unavailable Unavailabl e Fish, [facility], PA-C Unavailable Unavailabl e Fish, [facility], PA-C Unavailable Unavailabl e Fish, [facility], PA-C Unavailable Unavailabl e Fish, [facility], PA-C Unavailable Unavailabl e Fish, [facility], PA-C Unavailable Unavailabl e Fish, [facility], PA-C Unavailable Unavailabl e Fish, [facility], PA-C Unavailable Unavailabl e Fish, [facility], PA-C Unavailable Unavailabl e Fish, [facility], PA-C Unavailable Unavailabl e Fish, [facility], PA-C Unavailable Unavailabl e Fish, [facility], PA-C Unavailable Unavailabl e Fish, [facility], PA-C Unavailable Unavailabl e Fish, [facility], PA-C Unavailable Unavailabl e Fish, [facility], PA-C Unavailable Unavailabl e Fish, [facility], PA-C Unavailable Unavailabl e Fish, [facility], PA-C Unavailable Unavailabl e Fish, Alissa Kendy [...] PA-C Unavailable Unavailabl e Fish, Alissa Larry [facility], PA-C Unavailable Unavailabl e Fish, Alissa Larry [facility], PA-C Unavailable Unavailabl e George, Sim Jairo PA Unavailable Unavailable George, Sim Gill PA Unavailable Unavailable Sim Vazquez PA Unavailable [...] Unavailable Sim Vazquez Jairo PA Unavailable Unavailable George, D Jairo [...] is protected by Article 27-F of the [place] State Public Health law. If you continue you may have access to information: Regarding HIV / AIDS; Provided by facilities licensed or operated by the [facility] Office of Mental Health; or Provided by the [facility] Office for People With Developmental Disabilities. If such information is present, then the following [facility] mandated warning applies: This information has been [...] law may result in a fine or alf sentence or both. A general authorization for the release of medical or other information is NOT sufficient authorization for further disc losure. Family History Family Member Name Family Member Gender Family Member Status Date o f Status Description Data Source(s) Unknown Male Problem [facility] () Unknown Unknown Encounters Encounter Providers Location Date Indications Data Source(s ) Outpatient Attender: Jairo HARVEY [place] 12:30:00 PM EST [facility] ([facility] Outpatient Attender: Jairo HARVEY [place] [facility] 08:30:00 AM EDT [facility] ([facility] Outpatient Attender: Kendy ALBERT PA-C Physical Therapy 06/08/2020 05:00:00 PM EDT [facility] ([facility]) Outpatient Attender: Kendy ALBERT PA-C Physical Therapy 04/27/2020 08:30:00 AM EDT [facility] ([facility]) Outpatient Attender: Jairo HARVEY [place] [facility] 03/2020 08:30:00 AM EDT [facility] ([facility] OFFICE OUTPATIENT NEW 30 MINUTES Attender: Kendy ALBERT PA-C Physical Therapy 03/02/2020 11:00:00 AM EDT [facility] ([facility]) [address] [address] 01/27/2020 12:00:00 AM EDT eCW1 ([facility]) Outpatient Attender: Jairo HARVEY [place] [facility] 03:30:00 PM EDT [facility] ([facility] Outpatient Attender: Jairo HARVEY [place] [facility] 07:30:00 AM EST [facility] ([facility] Immunizations Vaccine Date Status Description Data Source(s) New in 2012. IIV4 06/22/2020 08:36:00 AM EDT completed [facility] ([facility] New in 2012. IIV4 08/30/2019 07:59:00 [...] Acetonide 08/30/2019 12:00:00 AM EST active [facility] ([facility]) Insurance Providers Payer name Policy type / Coverage type Policy ID Covered constitution party ID Covered constitution party's relationship to domingo Policy Domingo Plan Information KIMBERLY BHAKTA WORKER COMP [id number] SP [id number] ONE CALL CARE MANAGEMENT O [id number] S [id number] [place] PPO 302/307 [id number] SP [id number] ANSI-Commercial [id number] ANSI-Not a Secondary Insurance [id number] ANSI-Commercial [id number] ANSI-Commercial [id number] ANSI-Commercial [id number] ANSI-Not a Secondary Insurance [id number] ANSI-Not a Secondary Insurance [id number] ANSI-Commercial [id number] ANSI-Commercial [id number] ANSI-Commercial [id number] ANSI-Not a Secondary Insurance [id number] ANSI-Commercial [id number] ANSI-Commercial [id number] ANSI-Commercial [id number] ANSI-Not a Secondary Insurance [id number] ANSI-Not a Secondary Insurance [id number] ANSI-Commercial [id number] ANSI-Commercial [id number] ANSI-Not a Secondary Insurance [id number] ANSI-Commercial [id number] ANSI-Commercial [id number] ANSI-Not a Secondary Insurance [id number] ANSI-Commercial [id number] ANSI-Commercial [id number] ANSI-Not a Secondary Insurance [id number] ANSI-Commercial [id number] ANSI-Commercial [id number] [place] [id number] S [id number] KIMBERLY BHAKTA WORKER COMP [id number] SP [id number] [place] PPO 302/307 [id number] SP [id number] [facility] [id number] SP [id number] BCBS [place] 190/690 [id number] SP [id number] SELF PAY ONLY SP BCBS [place] PPO 302/307 [id number] SP [id number] [facility] Health Maintenance Organization (HMO) [id number] Self [id number] [facility] Health Maintenance Organization (HMO) [id number] Self [id number] [facility] Health Maintenance Organization (HMO) [id number] Self [id number] BLUE CROSS BLUE SHIELD-O/P [id number] 18 [id number] BC/BS [facility] Commercial Self [id number] Problems, Conditions, and Diagnoses Code Display Name Description Problem Type Effective Dates Data Source(s) 56337797 Intention tremor Intention tremor Problem 08/29/2020 12 :00:00 AM [facility] [id number] Abnormal involuntary movement Abnormal involuntary mov ement Problem 08/27/2020 12:00:00 AM EST [facility] ([facility]) [id number] Abnormal involuntary movement Abnormal involuntary mov ement Problem 08/27/2020 12:00:00 AM EST [facility] ([facility] Surgeries/Procedures Procedure Description Date Indications Data Source(s) APPLICATION MODALITY 1/> AREAS HOT/COLD PACKS 06/14/20 12:00:00 AM EDT [facility] ([facility] ) APPL MODALITY 1/> AREAS ELEC STIMJ EA 15 MIN 0 12:00:00 AM EDT [facility] ([facility] ) THERAPEUTIC PX 1/> AREAS EACH 15 MIN EXERCISES 12:00:00 AM EDT [facility] ([facility]) THERAPEUTIC PX 1/> AREAS EACH 15 MIN EXERCISES 12:00:00 AM EDT [facility] ([facility] APPLICATION MODALITY 1/> AREAS HOT/COLD PACKS 06/12/20 12:00:00 AM EDT [facility] ([facility]) APPL MODALITY 1/> AREAS ELEC STIMJ EA 15 MIN 0 12:00:00 AM EDT [facility] ([facility] THERAPEUTIC PX 1/> AREAS EACH 15 MIN EXERCISES 12:00:00 AM EDT [facility] ([facility]) THERAPEUTIC PX 1/> AREAS EACH 15 MIN EXERCISES 12:00:00 AM EDT [facility] ([facility]) APPLICATION MODALITY 1/> AREAS HOT/COLD PACKS 06/07/20 12:00:00 AM EDT [facility] ([facility] ) APPL MODALITY 1/> AREAS ELEC STIMJ EA 15 MIN 0 12:00:00 AM EDT [facility] ([facility] ) THERAPEUTIC PX 1/> AREAS EACH 15 MIN EXERCISES 12:00:00 AM EDT [facility] ([facility]) THERAPEUTIC PX 1/> AREAS EACH 15 MIN EXERCISES 12:00:00 AM EDT [facility] ([facility] ) THERAPEUTIC PX 1/> AREAS EACH 15 MIN EXERCISES 12:00:00 AM EDT [facility] ([facility]) THERAPEUTIC PX 1/> AREAS EACH 15 MIN EXERCISES 12:00:00 AM EDT [facility] ([facility]) APPL MODALITY 1/> AREAS ELEC STIMJ EA 15 MIN 0 12:00:00 AM EDT [facility] ([facility] ) APPLICATION MODALITY 1/> AREAS HOT/COLD PACKS 05/31/20 20 12:00:00 AM EDT [facility] ([facility] ) APPLICATION MODALITY 1/> AREAS HOT/COLD PACKS 05/29/20 20 12:00:00 AM EDT [facility] ([facility] ) APPL MODALITY 1/> AREAS ELEC STIMJ EA 15 MIN 0 12:00:00 AM EDT [facility] ([facility] ) THERAPEUTIC PX 1/> AREAS EACH 15 MIN EXERCISES 12:00:00 AM EDT [facility] ([facility] ) THERAPEUTIC PX 1/> AREAS EACH 15 MIN EXERCISES 12:00:00 AM EDT [facility] ([facility] ) THERAPEUTIC PX 1/> AREAS EACH 15 MIN EXERCISES 12:00:00 AM EDT [facility] ([facility] ) THERAPEUTIC PX 1/> AREAS EACH 15 MIN EXERCISES 12:00:00 AM EDT [facility] ([facility]) APPL MODALITY 1/> AREAS ELEC STIMJ EA 15 MIN 0 12:00:00 AM EDT [facility] ([facility] ) APPLICATION MODALITY 1/> AREAS HOT/COLD PACKS 05/24/20 20 12:00:00 AM EDT [facility] ([facility]) APPLICATION MODALITY 1/> AREAS HOT/COLD PACKS 05/22/20 20 12:00:00 AM EDT [facility] ([facility] ) APPL MODALITY 1/> AREAS ELEC STIMJ EA 15 MIN 0 12:00:00 AM EDT [facility] ([facility] ) THERAPEUTIC PX 1/> AREAS EACH 15 MIN EXERCISES 12:00:00 AM EDT [facility] ([facility] ) THERAPEUTIC PX 1/> AREAS EACH 15 MIN EXERCISES 12:00:00 AM EDT [facility] ([facility] ) APPL MODALITY 1/> AREAS ELEC STIMJ EA 15 MIN 0 12:00:00 AM EDT [facility] ([facility] ) Physical Therapy Eval - Low Complexity 05/17/2020 12:0 0:00 AM EDT [facility] ([facility] ) ARTHROCENTESIS ASPIR&/INJECTION MAJOR JT/BURSA 020 12:00:00 AM EDT [facility] ([facility] ) Results ID Date Data Source [id number] 07/25/2020 12:00:00 AM EST [facility] Name Value Range Interpretation Code Description Data April rce(s) Supporting Document(s) SARS-CoV2 Rapid Antigen [facility] and reported by [facility]. ID Date Data Source [id number] 04/05/2020 12:00:00 AM EDT [facility] Jamar Torrez MD Patient Name: CHRISTIAN SHAFFER [facility] 1965[facility] [place] [address] Date of Exam: 04/05/2020#: Fax: [phone] EXAM: [...] There is no occult fracture. There is ulaik-hx-naziyldk joint fluid with fluid extending into thesubacromial/subdeltoid bursae.IMPRESSION:Moderate supraspinatus and subscapularis tendinopathy. Full thicknesspartial tear anterior supraspinatus tendon. I also suspect a partial tearof the sub scapularis tendon. There are moderate hypertrophic degenerativechanges of the acromioclavicular joint. Acromion is downward sloping andis Type II. There is mild fraying of the posterior labrum.Uabj-sf-wkuxmfbj joint effusion, with fluid extending into thesubacromial/subdeltoid bursae.Accredited by the [employer] in [place].Lonny Hernandez, AVA/Kandis you for referring YAMILET SHAFFER to our office. Electronically Signed - LONNY HERNANDEZ MD 04/05/20 16:38 Name Value Range Interpretation Code Description Data April rce(s) Supporting Document(s) ID Date Data Source [id number] 04/05/2020 12:00:00 AM EDT [facility] Kendy Torrez Pa-C Patient Name: YAMILET SHAFFER[address] [facility] Date of : 1965[place] [address]- Date of Exam: 04/05/2020PH#: Fax: [phone] EXAM: [...] by JOE Tate, with Dr. Hernandez.Lonny Hernandez, AVA/jmcThank you for referring YAMILET SHAFFER to our office. Electronically Signed - LONNY HERNANDEZ MD 04/05/20 16:36 Name Value Range Interpretation Code Description Data April rce(s) Supporting Document(s) ID Date Data Source [id number] 04/05/2020 12:00:00 AM EDT [facility] Kendy Torrez Pa-C Patient Name: CHRISTIAN SHAFFER [facility] Date of : 1965[address] [address]- Date of Exam: 04/05/2020#: Fax: [phone] EXAM: [...] by JOE Tate, with Dr. Hernandez.Lonny Hernandez, AVA/jmcTnirmalak you for referring YAMILET SHAFFER to our office. Electronically Signed - LONNY HERNANDEZ MD 04/05/20 16:36 Name Value Range Interpretation Code Description Data April rce(s) Supporting Document(s) ID Date Data Source [id number] 03/13/2020 09:41:00 AM EDT [facility] ([facility] Name Value Range Interpretation Code Description Data April rce(s) Supporting Document(s) Color Urine Laboratory test result M EDENT ([facility] Appearance of Urine Laboratory test result [facility] ([facility] Specific [place] 1.025 1.00-1.03 [facility] ([facility] PH Urine 5.0 5.0-8.0 [facility] ([facility] Glucose Urine Laboratory test result [facility] ([facility] Bilirubin.total [Presence] in Urine by Test strip Laboratory test res ult [facility] ([facility] Ketones Laboratory test result [facility] ([facility] Blood Urine Laboratory test result M EDENT ([facility] Protein Urine Laboratory test result [facility] ([facility] Urobilinogen 0.2 EU/dl 0.2-1.0 [facility] ([facility] Nitrite Laboratory test result [facility] ([facility] Leukocytes Laboratory test result ME DENT ([facility] ID Date Data Source [id number] 03/13/2020 08:58:00 AM EDT [facility] ([facility] Name Value Range Interpretation Code Description Data April rce(s) Supporting Document(s) Prostate specific Ag [Mass/volume] in Serum or Plasma 1.47 ng/mL 0.0- 4.0 [facility] ([facility] ID Date Data Source [id number] 03/13/2020 08:57:00 AM EDT [facility] ([facility] Name Value Range Interpretation Code Description Data April rce(s) Supporting Document(s) Thyrotropin [Units/volume] in Serum or Plasma 0.994 ulU/mL 0.60-4.8 [facility] ([facility] ID Date Data Source [id number] 03/13/2020 08:55:00 AM EDT MEDKIAN[facility] ([facility] Zane Trevizo) Name Value Range Interpretation Code Description Data April rce(s) Supporting Document(s) Chol 188 mg/dL 0-200 [facility] ([facility] NORMAL RANGES Age WBC RBC HGB HCT [...] HCT IS 5% LESS SOURCE FOR DATA: [employer] - [place] 1800 OPERATION MANUAL( AUTOMATED BLOOD COUNTS ANDDIFF.) [...] 2-19 YEARS EXCLUSIVE. Trig 76 mg/dL 35-200 [facility] ([facility] NORMAL [...] HCT IS 5% LESS SOURCE FOR DATA: [employer] - [place] 1800 OPERATION MANUAL( AUTOMATED BLOOD COUNTS ANDDIFF.) [...] HCT IS 5% LESS SOURCE FOR DATA: [employer] - [place] 1800 OPERATION MANUAL( AUTOMATED BLOOD COUNTS ANDDIFF.) [...] 2-19 YEARS EXCLUSIVE. LDL_C 121 Calc 75-129 [facility] ([facility] NORMAL RANGES Age [...] HCT IS 5% LESS SOURCE FOR DATA: [employer] - [place] 1800 OPERATION MANUAL( AUTOMATED BLOOD COUNTS ANDDIFF.) [...] 2-19 YEARS EXCLUSIVE. Cho/HDL Ratio 3.6 Calc [employer] ([facility] NORMAL RANGES Age WBC RBC HGB [...] HCT IS 5% LESS SOURCE FOR DATA: [employer] - [place] 1800 OPERATION MANUAL( AUTOMATED BLOOD COUNTS ANDDIFF.) [...] 2-19 YEARS EXCLUSIVE. ID Date Data Source [id number] 03/13/2020 08:55:00 AM EDT [facility] ([facility] Name Value Range [...] HCT IS 5% LESS SOURCE FOR DATA: [employer] - [place] 1800 OPERATION MANUAL( AUTOMATED BLOOD COUNTS ANDDIFF.) [...] 2-19 YEARS EXCLUSIVE. Glu 103 mg/dL 70-110 [facility] ([facility] NORMAL [...] HCT IS 5% LESS SOURCE FOR DATA: [employer] - [place] 1800 OPERATION MANUAL( AUTOMATED BLOOD COUNTS ANDDIFF.) [...] 2-19 YEARS EXCLUSIVE. BUN/Creatinine Ratio 18.3 CALC [facility] ([facility] NORMAL RANGES Age WBC RBC [...] HCT IS 5% LESS SOURCE FOR DATA: [employer] - [place] 1800 OPERATION MANUAL( AUTOMATED BLOOD COUNTS ANDDIFF.) [...] 2-19 YEARS EXCLUSIVE. CL 105.4 mmol/L 98.0-107.0 [facility] ([facility] NORMAL RANGES Age WBC RBC HGB [...] HCT IS 5% LESS SOURCE FOR DATA: [employer] - [place] 1800 OPERATION MANUAL( AUTOMATED BLOOD COUNTS ANDDIFF.) [...] 2-19 YEARS EXCLUSIVE. Na 140 mmol/L 136-145 [facility] ([facility] NORMAL [...] HCT IS 5% LESS SOURCE FOR DATA: [employer] - [place] 1800 OPERATION MANUAL( AUTOMATED BLOOD COUNTS ANDDIFF.) [...] 2-19 YEARS EXCLUSIVE. K 4.1 mmol/L 3.5-5.1 [facility] ([facility] NORMAL RANGES Age WBC RBC [...] HCT IS 5% LESS SOURCE FOR DATA: [employer] - [place] 1800 OPERATION MANUAL( AUTOMATED BLOOD COUNTS ANDDIFF.) [...] 2-19 YEARS EXCLUSIVE. Co2 24.0 mmol/L 22.0-29.0 [employer] ([facility] NORMAL RANGES Age WBC RBC [...] HCT IS 5% LESS SOURCE FOR DATA: [employer] - [place] 1800 OPERATION MANUAL( AUTOMATED BLOOD COUNTS ANDDIFF.) [...] HCT IS 5% LESS SOURCE FOR DATA: [employer] - [place] 1800 OPERATION MANUAL( AUTOMATED BLOOD COUNTS ANDDIFF.) [...] 2-19 YEARS EXCLUSIVE. TP 6.6 g/dL 6.6-8.7 [facility] NORMAL RANGES Age WBC [...] HCT IS 5% LESS SOURCE FOR DATA: [employer] - [place] 1800 OPERATION MANUAL( AUTOMATED BLOOD COUNTS ANDDIFF.) [...] 2-19 YEARS EXCLUSIVE. A/G Ratio 1.9 CALC [facility] ([facility] [...] HCT IS 5% LESS SOURCE FOR DATA: [employer] - [place] 1800 OPERATION MANUAL( AUTOMATED BLOOD COUNTS ANDDIFF.) [...] HCT IS 5% LESS SOURCE FOR DATA: [employer] - [place] 1800 OPERATION MANUAL( AUTOMATED BLOOD COUNTS ANDDIFF.) [...] 2-19 YEARS EXCLUSIVE. Alb 4.4 g/dL 3.5-5.2 [facility] ([facility] NORMAL RANGES Age WBC [...] HCT IS 5% LESS SOURCE FOR DATA: [employer] - [place] 1800 OPERATION MANUAL( AUTOMATED BLOOD COUNTS ANDDIFF.) [...] 2-19 YEARS EXCLUSIVE. Alp 102.0 U/L 40-129 [facility] ([facility] NORMAL [...] HCT IS 5% LESS SOURCE FOR DATA: [employer] - [place] 1800 OPERATION MANUAL( AUTOMATED BLOOD COUNTS ANDDIFF.) [...] HCT IS 5% LESS SOURCE FOR DATA: [employer] - [place] 1800 OPERATION MANUAL( AUTOMATED BLOOD COUNTS ANDDIFF.) [...] YEARS EXCLUSIVE. Ast (Sgot) 25 U/L 0-40 [facility] NORMAL RANGES Age WBC RBC [...] HCT IS 5% LESS SOURCE FOR DATA: [employer] - [place] 1800 OPERATION MANUAL( AUTOMATED BLOOD COUNTS ANDDIFF.) [...] HCT IS 5% LESS SOURCE FOR DATA: [employer] - [place] 1800 OPERATION MANUAL( AUTOMATED BLOOD COUNTS ANDDIFF.) [...] 2-19 YEARS EXCLUSIVE. Anion Gap 15 mmol/L [facility] ([facility] NORMAL [...] HCT IS 5% LESS SOURCE FOR DATA: [employer] DYN 1800 OPERATION MANUAL( AUTOMATED BLOOD [...] HCT IS 5% LESS SOURCE FOR DATA: [employer] - [place] 1800 OPERATION MANUAL( AUTOMATED BLOOD COUNTS ANDDIFF.) [...] INDIVIDUALA AGED 2-19 YEARS EXCLUSIVE. eGFR Non-Afr. [employer] 101 # [facility] ([facility] [...] HCT IS 5% LESS SOURCE FOR DATA: [employer] - [place] 1800 OPERATION MANUAL( AUTOMATED BLOOD COUNTS ANDDIFF.) [...] 2-19 YEARS EXCLUSIVE. ID Date Data Source [id number] 03/13/2020 08:55:00 AM EDT [facility] ([facility] Name Value Range Interpretation Code Description Data April rce(s) Supporting Document(s) WBC 4.6 10E3/uL 4.1-10.9 [facility] ([facility] NORMAL RANGES Age WBC RBC [...] HCT IS 5% LESS SOURCE FOR DATA: [employer] - [place] 1800 OPERATION MANUAL( AUTOMATED BLOOD COUNTS ANDDIFF.) [...] 2-19 YEARS EXCLUSIVE. RBC 5.78 10E6/uL 4.20-6.30 [facility] ([facility] NORMAL RANGES Age WBC RBC [...] HCT IS 5% LESS SOURCE FOR DATA: [employer] - [place] 1800 OPERATION MANUAL( AUTOMATED BLOOD COUNTS ANDDIFF.) [...] 2-19 YEARS EXCLUSIVE. HGB 17.0 g/dL 12.0-18.0 [facility] NORMAL RANGES Age WBC [...] HCT IS 5% LESS SOURCE FOR DATA: [employer] - [place] 1800 OPERATION MANUAL( AUTOMATED BLOOD COUNTS ANDDIFF.) [...] 2-19 YEARS EXCLUSIVE. HCT 49.8 % 37.0-51.0 [facility] ([facility] NORMAL [...] HCT IS 5% LESS SOURCE FOR DATA: [employer] - [place] 1800 OPERATION MANUAL( AUTOMATED BLOOD COUNTS ANDDIFF.) [...] HCT IS 5% LESS SOURCE FOR DATA: [employer] - [place] 1800 OPERATION MANUAL( AUTOMATED BLOOD COUNTS ANDDIFF.) [...] 2-19 YEARS EXCLUSIVE. MCH 29.4 pg 26.0-32.0 [facility] ([facility] NORMAL [...] HCT IS 5% LESS SOURCE FOR DATA: [employer] - [place] 1800 OPERATION MANUAL( AUTOMATED BLOOD COUNTS ANDDIFF.) [...] 2-19 YEARS EXCLUSIVE. MCHC 34.1 g/dL 31.0-36.0 [facility] ([facility] [facility] NORMAL [...] HCT IS 5% LESS SOURCE FOR DATA: [employer] - [place] 1800 OPERATION MANUAL( AUTOMATED BLOOD COUNTS ANDDIFF.) [...] 2-19 YEARS EXCLUSIVE. PLT 173 10E3/uL 140-440 [facility] ([facility] NORMAL RANGES Age WBC RBC [...] HCT IS 5% LESS SOURCE FOR DATA: [employer] - [place] 1800 OPERATION MANUAL( AUTOMATED BLOOD COUNTS ANDDIFF.) [...] 2-19 YEARS EXCLUSIVE. Lym% 23.5 % 10.0-58.5 [facility] ([facility] NORMAL [...] 2-19 YEARS EXCLUSIVE. RDW-CV 13.4 % 11.5-14.5 [facility] ([facility] NORMAL [...] HCT IS 5% LESS SOURCE FOR DATA: [employer] - [place] 1800 OPERATION MANUAL( AUTOMATED BLOOD COUNTS ANDDIFF.) [...] HCT IS 5% LESS SOURCE FOR DATA: [employer] - [place] 1800 OPERATION MANUAL( AUTOMATED BLOOD COUNTS ANDDIFF.) [...] 2-19 YEARS EXCLUSIVE. MXD% 11.0 % 0.1-24.0 [facility] ([facility] NORMAL [...] HCT IS 5% LESS SOURCE FOR DATA: [employer] - [place] 1800 OPERATION MANUAL( AUTOMATED BLOOD COUNTS ANDDIFF.) [...] 2-19 YEARS EXCLUSIVE. Lym# 1.1 10E3/uL 0.6-4.1 [facility] ([facility] NORMAL RANGES Age WBC RBC [...] HCT IS 5% LESS SOURCE FOR DATA: [employer] - [place] 1800 OPERATION MANUAL( AUTOMATED BLOOD COUNTS ANDDIFF.) [...] 2-19 YEARS EXCLUSIVE. MXD# 0.5 10E3/uL 0.0-1.8 [facility] ([facility] NORMAL RANGES Age WBC RBC [...] HCT IS 5% LESS SOURCE FOR DATA: [employer] - [place] 1800 OPERATION MANUAL( AUTOMATED BLOOD COUNTS ANDDIFF.) [...] 2-19 YEARS EXCLUSIVE. Neut# 3.0 % 2.0-7.8 [facility] ([facility] NORMAL [...] HCT IS 5% LESS SOURCE FOR DATA: [employer] - [place] 1800 OPERATION MANUAL( AUTOMATED BLOOD COUNTS ANDDIFF.) [...] 2-19 YEARS EXCLUSIVE. MPV 11.1 fL 9.0-13.0 [facility] ([facility] NORMAL [...] HCT IS 5% LESS SOURCE FOR DATA: [employer] - [place] 1800 OPERATION MANUAL( AUTOMATED BLOOD COUNTS ANDDIFF.) [...] Value Range Interpretation Code Description Data Source(s) [place] body weight 184 [lb_av] 184 [lb_av] MEDEN T ([facility]) Body mass index (BMI) [Ratio] 39.3 kg/m2 39.3 k g/m2 [facility] ([facility]) Body weight 298.00 [lb_av] 298.00 [lb_av] [facility] T ([facility]) Body height 73 [in_i] 73 [in_i] [facility] ([facility]) 6'1" Respiratory rate 12 /min 12 /min [facility] ( [facility]) Oxygen saturation in Arterial blood by Pulse oximetry 97 % 97 % [facility] ([facility]) Body mass index (BMI) [Ratio] 39.3 kg/m2 39.3 k g/m2 [facility] ([facility]) Body weight 298.00 [lb_av] 298.00 [lb_av] [facility] T ([facility]) Body height 73 [in_i] 73 [in_i] [facility] ([facility]) 6'1" Respiratory rate 16 /min 16 /min [facility] ( [facility]) Body temperature 98.2 [degF] 98.2 [degF] [facility] ([facility]) Heart rate 100 /min 100 /min [facility] ([facility]) Diastolic blood pressure 90 mm[Hg] 90 mm[Hg] [facility] ([facility]) Systolic blood pressure 124 mm[Hg] 124 mm[Hg] M EDENT ([facility]) Oxygen saturation in Arterial blood by Pulse oximetry 97 % 97 % [facility] ([facility] Body mass index (BMI) [Ratio] 39.3 kg/m2 39.3 k g/m2 [facility] ([facility] [place] body weight 184 [lb_av] 184 [lb_av] [facility] T ([facility] Body weight 298.00 [lb_av] 298.00 [lb_av] [facility] T ([facility] Body height 73 [in_i] 73 [in_i] [facility] ([facility] 6'1" Respiratory [...] k g/m2 [facility] ([facility] [place] body weight 184 [lb_av] 184 [lb_av] [facility] T ([facility] Body weight 299.00 [lb_av] 299.00 [lb_av] [facility] T ([facility] Body height 73 [in_i] 73 [in_i] [facility] ([facility] 6'1" Respiratory [...] [Ratio] 38.5 kg/m2 38.5 k g/m2 [facility] ([facility] [place] body weight 184 [lb_av] 184 [lb_av] [facility] T ([facility] Body weight 292.00 [lb_av] 292.00 [lb_av] [facility] T ([facility] Body height 73 [in_i] 73 [in_i] [facility] ([facility] 6'1" Respiratory rate 16 /min 16 /min [facility] ( [facility] Heart rate 72 /min 72 /min [facility] ([facility] Body temperature 99.2 [degF] 99.2 [degF] [facility] ([facility] Diastolic blood pressure 84 mm[Hg] 84 mm[Hg] [facility] ([facility] Systolic blood pressure 122 mm[Hg] 122 mm[Hg] M EDENT ([facility] Body mass index (BMI) [Ratio] 39.6 kg/m2 39.6 k g/m2 [facility] ([facility]) Body weight 300.00 [lb_av] 300.00 [lb_av] MEDEN T ([facility]) Body height 73 [in_i] 73 [in_i] [facility] ([facility]) 6'1" Body temperature 98.7 [degF] 98.7 [degF] [facility] ([facility]) Diastolic blood pressure 84 mm[Hg] 84 mm[Hg] eCW1 ([facility]) Systolic blood pressure 153 mm[Hg] 153 mm[Hg] e CW1 ([facility]) Body temperature 100.0 [degF] 100.0 [degF] eCW1 ([facility]) Respiratory rate 18 /min 18 /min eCW1 ([facility]) Heart rate 76 /min 76 /min eCW1 ([facility]) Body mass index (BMI) [Ratio] 39.97 kg/m2 39.97 kg/m2 eCW1 ([facility]) Body height 73 [in_us] 73 [in_us] eCW[facility] Body weight Measured 303 [lb_av] 303 [lb_av] eC W1 ([facility]) Oxygen saturation in Arterial blood by Pulse oximetry 97 % 97 % [facility] ([facility] Body mass index (BMI) [Ratio] 39.7 kg/m2 39.7 k g/m2 [facility] ([facility] Body weight 301.00 [lb_av] 301.00 [lb_av] MEDEN T ([facility] Body height 73 [in_i] 73 [in_i] [facility] ([facility] 6'1" Respiratory rate 16 [...] Body height 73 [in_i] 73 [in_i] [facility] ([facility] 6'1" Respiratory rate 16 /min 16 /min [facility] ( [facility] Heart rate 76 /min 76 /min [facility] ([facility] Body temperature 98.8 [degF] 98.8 [degF] [facility] ([facility] Diastolic blood pressure 86 mm[Hg] 86 mm[Hg] [facility] ([facility] Systolic blood pressure 130 mm[Hg] 130 mm[Hg] M VANESSA ([facility] Diastolic blood pressure 90 mm[Hg] 90 mm[Hg] KERRI ([facility] Systolic blood pressure 134 mm[Hg] 134 mm[Hg] M VANESSA ([facility]
[2020-09-21 19:59] VITALS: BP 159/90
[2020-09-21 20:24] LABS: APPEARANCE, URINE CLEAR (CLEAR); BACTERIA, URINE AUTO NEGATIVE (NEGATIVE); BILIRUBIN, URINE AUTO NEGATIVE (NEGATIVE); BLOOD, URINE BLOOD NEGATIVE (NEGATIVE); COLOR, URINE YELLOW (YELLOW); GLUCOSE, URINE (UA) AUTO NEGATIVE (NEGATIVE); KETONE, URINE AUTO NEGATIVE (NEGATIVE); LEUKOCYTE ESTERASE, URINE AUTO NEGATIVE (NEGATIVE); MUCUS, URINE SMALL (NEGATIVE); NITRITE, URINE AUTO NEGATIVE (NEGATIVE); PROTEIN, URINE AUTO NEGATIVE (NEGATIVE); RBC, URINE AUTO 1 /HPF (0-3); SPECIFIC GRAVITY URINE AUTO >1.060 (1.002-1.035); SQUAMOUS EPITHELIAL CELL UR AU 0 /HPF (0-6); UROBILINOGEN, URINE AUTO 0.2 mg/dL (0.0-2.0); WBC, URINE AUTO 0 /HPF (0-3)
[2020-09-21] MEDS ORDERED: NORCO 5/325MG TABLET (BULK FOR ED) PO ONE (20:30)
--- NOTE | 2020-09-22 10:23 | REP ---
INDICATION: fall, left chest wall, LUQ, L flank pain. COMPARISON: None. TECHNIQUE: CT chest performed following the intravenous administration of 100 cc of Isovue 370. Sagittal and coronal reconstruction images are performed. FINDINGS: Lungs: Clear, no infiltrate or nodule. Mediastinum: No adenopathy. Mara: No adenopathy. Axilla: No adenopathy. Pleura: No effusion. Heart: Not enlarged. Thoracic aorta: No aneurysm or dissection. Visualized osseous structures: Unremarkable. IMPRESSION: Unremarkable CT chest. Preliminary report provided by [facility] at the time of the exam. <Electronically signed by Lonny Hernandez > 09/22/20 1025
--- NOTE | 2020-09-22 10:30 | REP ---
INDICATION: fall. COMPARISON: None. TECHNIQUE: CT BRAIN PERFORMED IN THE AXIAL PLANE. CORONAL RECONSTRUCTION IMAGES ARE PERFORMED. FINDINGS: THE VENTRICLES ARE NORMAL IN SIZE AND POSITION. THERE IS NO MIDLINE SHIFT OR MASS EFFECT. HERNANDEZ-WHITE DIFFERENTIATION IS WELL MAINTAINED. THERE IS NO ACUTE INTRACRANIAL HEMORRHAGE OR EXTRA-AXIAL FLUID COLLECTION. BONE WINDOW EXAMINATION IS UNREMARKABLE. VISUALIZED MASTOID AIR CELLS AND PARANASAL SINUSES ARE CLEAR. IMPRESSION: NEGATIVE NONCONTRAST CT BRAIN. A preliminary report was provided by [facility] at the time of the exam. <Electronically signed by Lonny Hernandez > 09/22/20 1024
--- NOTE | 2020-09-22 10:34 | REP ---
INDICATION: fall. COMPARISON: None. TECHNIQUE: CT cervical spine performed in the axial plane, with sagittal and coronal reconstruction images performed. FINDINGS: There is no acute compression fracture or malalignment. There is no prevertebral soft tissue swelling. Disc spaces are well preserved, except for mild narrowing at C5-6 disc space with associated osteophyte formation.. There is normal cervical lordosis. There is no abnormal density in the spinal canal. IMPRESSION: No evidence of acute fracture or dislocation. A preliminary report was provided by [facility] at the time of the exam. <Electronically signed by Lonny Hernandez > 09/22/20 [id number]
--- NOTE | 2020-09-22 10:40 | REP ---
INDICATION: fall, left chest wall, LUQ, L flank pain COMPARISON: None. TECHNIQUE: CT Scan of the abdomen and pelvis was performed with intravenous administration of 100 cc of Isovue 370, without oral contrast. FINDINGS: Lung bases: Unremarkable. Liver: Normal Gallbladder: Unremarkable. Spleen: Normal. Adrenals: Normal. Pancreas: Normal. Kidneys: There are multiple small parapelvic cysts in both kidneys. Small and large bowel: Multiple diverticula are seen of the left and sigmoid colon without acute diverticulitis.. Free fluid: None. Abdominal aorta: No aneurysm or dissection. Adenopathy: None. Appendix: Not inflamed. Osseous structures: There are degenerative changes of the spine without compression deformity. Pelvis: No mass. IMPRESSION: No acute abnormalities detected. No free air or free fluid. A preliminary report was provided by [facility] at the time of the exam. <Electronically signed by Lonny Hernandez > 09/22/20 1037
== END 2020-09-21 20:32 | disposition home or self-care (01) ==
LOC: M ED 17:55
DX: S52.502A Unspecified fracture of the lower end of left radius, initial encounter for closed fracture (principal); S62.112A Displaced fracture of triquetrum [cuneiform] bone, left wrist, initial encounter for closed fracture; S62.202A Unspecified fracture of first metacarpal bone, left hand, initial encounter for closed fracture; S09.90XA Unspecified injury of head, initial encounter; W17.89XA Other fall from one level to another, initial encounter; Y92.89 Other specified places as the place of occurrence of the external cause; Y99.0 Civilian activity done for income or pay; I10 Essential (primary) hypertension; Z79.899 Other long term (current) drug therapy
CPT/HCPCS: 29125; 36415; 70450; 71101; 71260; 72125; 73110; 74177; 80047; 81001; 83690; 85025; 99284; Q9967

== ENCOUNTER 2021-09-18 18:42 | Emergency (ER) | payer OTHER, BC ==
[~2021-09-18] VITALS: Ht 185.4 cm; Wt 136.6 kg
[2021-09-18 18:53] VITALS: BP 150/110
== END 2021-09-18 22:53 | disposition home or self-care (01) ==
LOC: M ED 18:42
DX: S62.334A Displaced fracture of neck of fourth metacarpal bone, right hand, initial encounter for closed fracture (principal); W01.0XXA Fall on same level from slipping, tripping and stumbling without subsequent striking against object, initial encounter; Y92.524 Gas station as the place of occurrence of the external cause; Y93.9 Activity, unspecified; Y99.9 Unspecified external cause status; I10 Essential (primary) hypertension; Z79.899 Other long term (current) drug therapy

== ENCOUNTER → 2022-09-22 | Outpatient (REF) | payer OTHER, BC | LOC: M LAB REF 16:03 | PROVIDERS: ATTEND Physician Assistant | DX: H02.821 Cysts of right upper eyelid (principal) ==

== ENCOUNTER → 2022-11-18 | Outpatient (CLI) | payer OTHER, BC ==
[2022-11-18 12:01] LABS: HEMATOCRIT 48.1 % (42.0-52.0); HEMOGLOBIN 15.7 g/dl (13.5-17.5); MEAN CORPUSCULAR HGB CONC 32.6 g/dl (32.0-36.5); MEAN CORPUSCULAR VOLUME 88.9 fl (80.0-96.0); PLATELET COUNT, AUTOMATED 164 10^3/uL (150-450); RED BLOOD COUNT 5.41 10^6/uL (4.30-6.10); WHITE BLOOD COUNT 5.2 10^3/uL (4.0-10.0)
[2022-11-18 12:36] LABS: ALBUMIN 3.9 G/DL (3.2-5.2); ALKALINE PHOSPHATASE 100 U/L (46-116); ALT/SGPT 38 U/L (7.0-40); AST/SGOT 31 U/L (<34); BILIRUBIN,TOTAL 0.8 MG/DL (0.3-1.2); BLOOD UREA NITROGEN 20 MG/DL (9-23); CALCIUM LEVEL 9.1 MG/DL (8.5-10.1); CARBON DIOXIDE LEVEL 30 MMOL/L (20-31); CHLORIDE LEVEL 105 MMOL/L (98-107); CHOLESTEROL LEVEL 198 MG/DL (<200); CHOLESTEROL RISK RATIO 4.08 (<5); CREATININE FOR GFR 0.78 MG/DL (0.70-1.30); GLOMERULAR FILTRATION RATE > 60.0 (>56); GLUCOSE, FASTING 102 MG/DL (60-100); HDL CHOLESTEROL 48.5 MG/DL (>40); LDL CHOLESTEROL 130.1 MG/DL (<100); NON-HDL-C 149.5 MG/DL; POTASSIUM SERUM 4.4 MMOL/L (3.5-5.1); PROSTATIC SPECIFIC AG MONITOR 1.04 NG/ML (< 4.00); SODIUM LEVEL 140 MMOL/L (136-145); THYROID STIMULATING HORMONE 0.727 uIU/ML (0.55-4.78); TOTAL PROTEIN 6.4 G/DL (5.7-8.2); TRIGLYCERIDES LEVEL 97 MG/DL (<150)
== END ==
LOC: M WUC 08:31
PROVIDERS: ATTEND Physician Assistant
DX: I10 Essential (primary) hypertension (principal); E78.5 Hyperlipidemia, unspecified; Z82.49 Family history of ischemic heart disease and other diseases of the circulatory system

== ENCOUNTER → 2022-11-19 | Outpatient (REF) | payer OTHER, BC | LOC: M LAB REF 15:23 | PROVIDERS: ATTEND Physician Assistant | DX: I10 Essential (primary) hypertension (principal); E78.5 Hyperlipidemia, unspecified; R35.1 Nocturia; Z82.49 Family history of ischemic heart disease and other diseases of the circulatory system ==

== ENCOUNTER → 2023-02-27 | Outpatient (REF) | payer BC | LOC: M LAB REF 21:41 | PROVIDERS: ATTEND Physician Assistant | DX: B34.9 Viral infection, unspecified (principal) ==

== ENCOUNTER 2023-05-15 07:08 | Day surgery (SDC) | payer BC ==
[~2023-05-15] VITALS: Ht 185.4 cm; Wt 130.8 kg
[~2023-05-15 07:08] MED LIST changes: +AMLO2.5C6 PO; +NS 1,000 ML IV ONE; +SPIR-10 PO
[2023-05-15 08:34] VITALS: TEMP 97.5
[2023-05-15 08:46] VITALS: BP 128/72; O2SAT 95
== END 2023-05-15 08:46 | disposition home or self-care (01) ==
LOC: M OPP 07:08
PROVIDERS: ATTEND Surgery
DX: Z86.010 Personal history of colon polyps (principal); K63.5 Polyp of colon; I10 Essential (primary) hypertension; M19.90 Unspecified osteoarthritis, unspecified site; Z79.899 Other long term (current) drug therapy

== ENCOUNTER 2023-05-23 08:00 | Emergency (ER) | payer OTHER, BC ==
[~2023-05-23] VITALS: Ht 185.4 cm; Wt 133.8 kg
[~2023-05-23 08:00] MED LIST changes: -NS 1,000 ML IV ONE
[2023-05-23] MEDS ORDERED: PRED10TA2 (08:18)
[2023-05-23 11:55] VITALS: BP 160/90; TEMP 97.1; O2SAT 98
== END 2023-05-23 11:55 | disposition home or self-care (01) ==
LOC: M ED 08:00
DX: M72.2 Plantar fascial fibromatosis (principal); I10 Essential (primary) hypertension; Z79.52 Long term (current) use of systemic steroids; Z79.899 Other long term (current) drug therapy